=== PATIENT | female | born 1960 | race Caucasian/White ===

== ENCOUNTER 2019-11-10 09:35 | Outpatient (CLI) | payer OTHER, SELFPAY ==
--- NOTE | ~2019-11-10 | XR_ITS ---
EXAMINATION: XR abdomen obstructive series EXAM DATE: 11/10/2019 09:54 INDICATION: Right mid abdominal pain, symptoms for 3 weeks. TECHNIQUE: Frontal upright projection of the upper abdomen, frontal projection of the lower abdomen f or interpretation. There is no prior study for comparison. FINDINGS: There is expected amount of colonic stool and gas. No small bowel dilation, nonobstructiv e bowel gas pattern. There are no suspicious calcifications identified. There is no organomegaly suspected. Advanced left L4-5 facet arthropathy. There is no free intraperitoneal air. The lung b ases are clear. IMPRESSION: Unremarkable abdomen x-ray exam. Reviewed, dictated and finalized at location B.
== END 2019-11-10 09:36 | disposition home or self-care (01) ==
PROVIDERS: PCP Family Medicine; Visit Provider Physician Assistant
DX: R10.9 Unspecified abdominal pain (principal)
CPT/HCPCS: 74019

== ENCOUNTER 2019-11-15 10:42 | Outpatient (CLI) | payer OTHER, SELFPAY ==
--- NOTE | ~2019-11-15 | CT_ITS ---
EXAMINATION: CT abdomen pelvis w con EXAM DATE: 11/15/2019 11:27 INDICATION: Acute abdominal pain. TECHNIQUE: Spiral CT of the abdomen and pelvis was performed following intravenous injection of 100 m L Omnipaque 350. Axial, coronal and sagittal images were reviewed. The dose-length product (DLP) fo r this examination was 1046.58 mGy-cm. The exposure was tailored according to patient size (auto mA exposure control), and iterative reconstruction (ASIR) was used as additional dose reduction techniqu e. There is no prior study for comparison. FINDINGS: There is a lipoma within the lumen of the hepatic flexure of the colon measuring about 3 x 5 cm, probably a lead point causing colonic intussusception. No pneumatosis or perforation. Only mild colonic wall edema at this location. There are some small colonic lymph nodes which are probably bijal ctive. There is moderate to severe sigmoid, moderate descending colonic diverticulosis. The liver, spleen, adrenal glands and pancreas are unremarkable. There are gallstones within an othe rwise unremarkable gallbladder. No evidence of obstructive biliary disease. Portal and splenic vein s are patent. Kidneys enhance symmetrically. There is no hydronephrosis. The uterus is anteverted and morphologically normal. The bladder is unremarkable. There is no retroperitoneal or pelvic ly mphadenopathy. Small umbilical fat-containing hernia. The appendix is normal. There is small sliding gastroesophageal hiatal hernia. No free intraperito ranulfo gas. The heart is normal in size. There are no pericardial or pleural effusions. The lung ba ses are unremarkable. There are no osteoblastic or osteolytic lesions identified. IMPRESSION: 1. Ascending/transverse colonic intussusception with large intraluminal lipoma as likely lead point. 2. Colonic diverticulosis. 3. Cholelithiasis. Reviewed, dictated and finalized at location B.
[2019-11-15 11:19] LABS: Estimated Glomerular Filt Rate > 60
== END 2019-11-15 10:43 | disposition home or self-care (01) ==
PROVIDERS: PCP Family Medicine; Visit Provider Physician Assistant
DX: K57.30 Diverticulosis of large intestine without perforation or abscess without bleeding (principal); K80.20 Calculus of gallbladder without cholecystitis without obstruction; K56.1 Intussusception
CPT/HCPCS: 36415; 74177; Q9967

== ENCOUNTER 2019-11-15 16:56 | Inpatient (IN) | payer OTHER, SELFPAY ==
--- NOTE | ~2019-11-15 | XR_ITS ---
EXAMINATION: XR chest 1V portable INDICATION: Pacemaker insertion TECHNIQUE: Portable AP chest at 1510 hours COMPARISON: None available FINDINGS: A dual-lead pacemaker of the left chest wall ends with its leads in expected positions. The re is no pleural effusion or pneumothorax. The lungs are free of acute opacities. The cardiomediastin al silhouette is normal. IMPRESSION: 1. Dual lead pacemaker of the left chest wall, no pneumothorax. Reviewed, dictated and finalized at location A.
--- NOTE | ~2019-11-15 | XR_ITS ---
EXAMINATION: XR chest 2V 11/17/2019 11:32 INDICATION: Post pacemaker placement PROCEDURE: 2 view chest COMPARISON: 11/16/2019 FINDINGS: The lungs are clear. The cardiomediastinal silhouette is within normal limits. There are no pleural effusions. There is no pneumothorax suspected. Pacemaker leads are in expected position. IMPRESSION: 1: NO ACUTE CARDIOPULMONARY DISEASE. Reviewed, dictated and finalized at location A.
[2019-11-15 17:30] VITALS: BP 142/83; PULSE 65; RESP 18; TEMP 37.2; O2SAT 100
[2019-11-15 17:34] LABS: Basophils Absolute Auto 0.1 K/mm3 (0.0-0.1); Basophils Percent Auto 0.5 % (0.2-1.2); Eosinophils Absolute Auto 0.2 K/mm3 (0-0.3); Eosinophils Percent Auto 1.9 % (0-4.4); Hematocrit 39.1 % (37.0-47.0); Hemoglobin 13.1 g/dL (12.0-15.0); Immature Granulocyte Absolute 0.06 K/mm3 (0.00-0.031); Immature Granulocyte Percent A 0.5 % (0-0.5); Lymphocytes Absolute Auto 3.21 K/mm3 (0.9-3.2); Lymphocytes Percent Auto 29.4 % (18.3-44.2); Mean Corpuscular HGB Conc 33.5 g/dl (32-36); Mean Corpuscular Hemoglobin 30.5 pg (26-34); Mean Corpuscular Volume 91.1 fl (80-100); Mean Platelet Volume 10.5 fl (7.4-10.4); Monocytes Absolute Auto 0.8 K/mm3 (0.1-0.6); Monocytes Percent Auto 7.1 % (2.6-8.5); Neutrophils Absolute Auto 6.6 K/mm3 (1.3-6.7); Neutrophils Percent Auto 60.6 % (45.5-73.1); Platelet Count Result 287 k/mm3 (150-375); Red Blood Count 4.29 M/mm3 (4.2-5.4); Red Cell Distribution Width 12.8 % (11.5-14.5); White Blood Count 10.9 K/mm3 (4.5-10.0)
[2019-11-15 17:44] LABS: Add Urine Microscopic? NO; Appearance Urine Clear (Clear); Bilirubin Urine Negative (Negative); Blood Urine Negative (Negative); Color Urine Yellow (Yellow); Glucose Urine UA Negative (Negative); Ketones Urine Negative (Negative); Leukocyte Esterase Ur Negative LEU/UL (Negative); Nitrate Urine Negative (Negative); Protein Urine Negative (Negative); Urobilinogen Urine Negative mg/dL (<2.0)
[2019-11-15 17:46] LABS: Alanine Aminotransferase 18 U/L (4-35); Albumin Level 4.3 g/dL (3.5-5.1); Alkaline Phosphatase 81 U/L (38-126); Aspartate Amino Transferase 22 U/L (14-36); Bilirubin,Total 0.6 mg/dL (0.2-1.3); Blood Urea Nitrogen 17 mg/dL (7-17); Calcium 9.3 mg/dL (8.4-10.2); Carbon Dioxide 30 mmol/L (22-30); Chloride 103 mmol/L (98-107); Estimated CRCL calculation 73 ml/min; Estimated Glomerular Filt Rate > 60; Glucose 95 mg/dL (65-105); Lipase 48 U/L (23-300); Potassium 4.4 mmol/L (3.4-5.0); Sodium 138 mmol/L (137-145)
[2019-11-15 17:52] LABS: Specific Grav Ur > 1.060 (1.001-1.035)
[2019-11-15 18:34] LABS: Lactic Acid Reflex 0.7 mmol/L (0.7-2.1)
--- NOTE | 2019-11-15 19:14 | ED.ABDPAIN ---
HPI - Abdominal Pain General Chief Complaint: Abdominal Pain Stated Complaint: ABD Pain Time Seen by Provider: 11/15/19 19:06 History of Present Illness HPI narrative: Patient presents with her daughter for known intussusception. She saw her primary care physician today for intermittent right-sided abdominal pain. The CAT scan showed intussusception with a lipoma as the leading agent. She was sent to the ER to have this evaluated and taken care of. She is previously had a tubal ligation. Her CAT scan also showed gallstones, and she asked if she could have her gallbladder out while she is getting the intussusception fixed. She last ate at 1 PM. She works in an assisted living facility, and understands the medical methods. She does not have any nausea or vomiting. She has not been sick in the last couple weeks with cough cold fever chills or sweats. She does not smoke, she occasionally has a glass of wine, does not do drugs. She is allergic to trazodone. MD elicited complaint: abdominal pain Pertinent past history: other (Tubal ligation) Onset (ago): day(s) Pain Consistency: intermittent Location: R flank Severity: severe Exacerbating factors: nothing Relieving factors: nothing Related Data Home Medications Medication Instructions Recorded Confirmed alprazolam 0.5 mg tablet 0.5 mg PO TID PRN 10/13/19 amlodipine 5 mg tablet 5 mg PO DAILY 10/13/19 atorvastatin 40 mg tablet 40 mg PO DAILY 10/13/19 bupropion HCl 150 mg tablet,12 hr 150 mg PO DAILY 10/13/19 sustained-release meloxicam 15 mg tablet 15 mg PO DAILY 10/13/19 metoprolol succinate 25 mg 25 mg PO BID 10/13/19 tablet,extended release 24 hr Allergies Allergy/AdvReac Type Severity Reaction Status Date / Time trazodone AdvReac Severe psychosis Verified 11/15/19 19:20 cold medications AdvReac Severe tachycardia Uncoded 11/15/19 19:20 Review of Systems Review of Systems: Narrative: CONSTITUTIONAL: Denies fever, chills, or sweats. EYES: Denies visual changes, redness, or discharge. ENT: Denies rhinorrhea, congestion, sore throat, or otalgia. CARDIOVASCULAR: Denies chest pain, palpitations, or edema. RESPIRATORY: Denies cough or dyspnea. GASTROINTESTINAL: She has abdominal pain, but not nausea, vomiting, or diarrhea. GENITOURINARY: Denies dysuria or hematuria. SKIN: Denies rash or itching. MUSCULOSKELETAL: Denies back pain, joint pain, or myalgia. NEUROLOGIC: Denies headache, numbness, or weakness. PSYCHIATRIC: Denies anxiety or depression. [facility] Past Medical History Medical History Anxiety Chronic knee pain Depression HLD (hyperlipidemia) Hypertension Surgical History Surgical History History of tubal ligation 1993 Social History Social History Smoking status: Never smoker Alcohol intake: current Substance use: never Substance use type: does not use Exam Narrative: Exam Narrative: GENERAL: Well-appearing, well-nourished, and in no acute distress. Very charming yu lady. HEAD: Normocephalic, atraumatic. EYES: PERRLA and EOMI. ENT: Nares clear, no rhinorrhea or epistaxis. Mucous membranes moist. NECK: Supple. CHEST: Clear to auscultation. No respiratory distress. HEART: Regular rate and rhythm. No murmur heard. Normal peripheral pulses. ABDOMEN: Soft, nontender, nondistended, normal active bowel sounds. EXTREMITIES: Normal range of motion. No edema. SKIN: Warm, dry, no rash. NEURO: No focal deficits. Alert and oriented x3. PSYCH: Normal mood and affect. Course Consultations Consultation #1: Call Dr. Philip care the general surgeon on-call. He accepts the admission, and requests IV fluids, and clear liquid diet. Date: 11/15/19 Time: 19:18 Vital Signs Vital signs: Vital Signs Temperature 98.9 F 11/15/19 17:30 Pulse Rate 65 11/15/19 17:30 Respiratory Rate 1
[2019-11-15 19:19] VITALS: BP 149/109; PULSE 59; RESP 20; O2SAT 100
[2019-11-15 19:51] VITALS: BP 151/85; PULSE 57; RESP 20; O2SAT 100
[2019-11-15] MEDS: SODIUM CHLORIDE 0.9% IV 1,000 ML 999 ML IV CONT (19:52)
[2019-11-15] MEDS: MORPHINE SULFATE 4 MG/ML INJ IV PUSH ×2 (19:53→21:58)
[2019-11-15 20:58] VITALS: BP 168/91; PULSE 74; RESP 18; TEMP 36.3; O2SAT 100
[2019-11-15 21:01] VITALS: BMI 34.7
[2019-11-15] MEDS: DEXTROSE 5%/0.9% SOD CHL 1,000 ML 100 ML IV CONT (21:02)
--- NOTE | 2019-11-15 21:06 | ADMGEN ---
This patient, Rosa Anderson, was admitted to Medical Room 346-01. Patient/family oriented to hospital policies and general routines including ID bracelet, bed and alarms, visiting hours, pain management, procedures, bathroom and other care routines, personal items, smoking policy, room service/diet, and visiting hours. Valuables list has been completed. Information on how to activate the Rapid Response Team has been discussed. Patient/Family are encouraged to report perceived risks to care and to ask questions if they do not understand what they are told or what they should do.
[2019-11-15] MEDS: ALPRAZolam 0.5 MG TABLET PO (23:38)
[2019-11-15] MEDS: MELATONIN 5 MG TABLET 10 MG PO (23:39)
[2019-11-16] VITALS (19 sets, daily range): BP systolic 110–146; BP diastolic 70–93; PULSE 60–133; RESP 13–20; TEMP 35.9–36.8; O2SAT 92–100
[2019-11-16] MEDS: MORPHINE SULFATE 4 MG/ML INJ IV PUSH ×3 (04:44→23:23)
[2019-11-16] MEDS: DEXTROSE 5%/0.9% SOD CHL 1,000 ML 100 ML IV CONT (05:58)
--- NOTE | 2019-11-16 08:42 | PC.NURSE ---
Patient leaning over trashcan and vomiting. States she became nauseated. Called Dr. Gardner's office and left message with office staff requesting medication for nausea. Awaiting call back. Informed patient. She states she continues to feel slightly nauseated and rates abdominal pain 3/10 but will wait for Morphine until anti-nausea medication can be obtained.
[2019-11-16] MEDS: ONDANSETRON INJ 4 MG/2 ML VIAL IV PUSH ×2 (08:50→17:02)
[2019-11-16] MEDS: AMLODIPINE BESYLATE 5 MG TABLET PO (08:56)
[2019-11-16] MEDS: METOPROLOL SUCCINATE EXT REL 25 MG TABCR PO ×2 (08:56→17:47)
--- NOTE | 2019-11-16 09:05 | PC.NURSE ---
Patient's heartrate noted to be in the 20s on her security monitor with several long pauses noted and extra P waves. Patient awake and alert but feels like she is going to pass out . After just a few seconds, HR increased to the 110s-120s. Patient nauseated and vomiting in trashcan at intervals. STAT EKG ordered.
--- NOTE | 2019-11-16 09:06 | PC.NURSE ---
Patient c/o feeling like her heart was racing . Checked pulse and noted HR of 130 and irregular. Placed patient on telemetry. Noted normal rate and rhythm and HR in the 70s. B/P also remains stable. 125/74. Returned to room and patient states she is not longer having the feeling of her heart racing. Patient resting comfortably in bed. Call out to Dr. Gardner to inform him of incident. Offered patient a Xanax but patient declined.
--- NOTE | 2019-11-16 09:12 | ECG_ITS ---
Measurements Intervals [place] Rate: 74 P: 43 TN: 211 QRS: 2 QRSD: 81 T: 27 QT: 426 QTc: 475 Interpretive Statements SINUS RHYTHM WITH FIRST DEGREE AV BLOCK NONSPECIFIC T-WAVE ABNORMALITY- ANT/INF LEADS BASELINE ARTIFACT- V2-V6 ABNORMAL ECG Electronically Signed On 11-16-2019 9:25:57 CDT by Rico Diaz D.O.
--- NOTE | 2019-11-16 09:17 | PM.IMHP ---
H&P: HPI History of Present Illness Chief complaint: Intussucepton Narrative: Rosa Anderson is a 58 year old female who presented to the ED with abdominal pain for the past 3 weeks. She has been having intermittent pain that has gradually worsened. She saw her PCP for the pain and was worked up as an outpatient. She denied any nausea or vomiting, change in bowels, or blood in stool. Her pain is located in the right mid abdomen and is somewhat colicky. She denies fevers. Eating makes the pain worse but no particular foods cause this. She still has pain when she is not eating. She did have a Cologuard test in the past but has never had a colonoscopy. Review of Systems Review of Systems: All systems reviewed & are unremarkable except as noted in HPI and below Eyes: Eyes: Denies change in vision ENT: Denies hearing loss, Denies neck pain and Denies sore throat Cardiovascular: Cardiovascular: Denies chest pain and Denies dyspnea Respiratory: Respiratory: Denies cough, Denies dyspnea and Denies wheezing Gastrointestinal: Gastrointestinal: Reports as per HPI Genitourinary: Genitourinary: Denies hematuria and Denies dysuria Musculoskeletal: Musculoskeletal: Denies arthralgias, Denies joint swelling and Denies neck pain Allergic/Immunologic: Allergic/Immunologic: Denies wheezing [facility] Past Medical History Medical History Anxiety Chronic knee pain Depression HLD (hyperlipidemia) Hypertension Surgical History Surgical History History of tubal ligation 1993 Family History Family History Mother Sudden cardiac , Onset Age: 49 Father Lung cancer Acute myocardial infarction Social History Social History Smoking status: Never smoker Second hand tobacco smoke exposure: No Alcohol intake: current Drinks per week: 1 Substance use: never Substance use type: does not use Gender identity (if verbalized by the patient): Female Spiritual care concerns: No Meds Home Medications and Allergies Home Medications Medication Instructions Recorded Confirmed Type alprazolam 0.5 mg tablet 0.5 mg PO TID PRN 10/13/19 11/15/19 History amlodipine 5 mg tablet 5 mg PO DAILY 10/13/19 11/15/19 History atorvastatin 40 mg tablet 40 mg PO DAILY 10/13/19 11/15/19 History bupropion HCl 150 mg tablet,12 hr 150 mg PO DAILY 10/13/19 11/15/19 History sustained-release meloxicam 15 mg tablet 15 mg PO DAILY 10/13/19 11/15/19 History metoprolol succinate 25 mg 25 mg PO BID 10/13/19 11/15/19 History tablet,extended release 24 hr dicyclomine 20 mg tablet 20 mg PO TID #90 tablet 11/14/19 11/15/19 Rx melatonin 10 mg PO HS PRN 11/15/19 11/15/19 History tramadol 50 mg tablet 50 mg PO Q6H PRN #20 tablet 11/15/19 11/15/19 Rx Allergies Allergy/AdvReac Type Severity Reaction Status Date / Time trazodone AdvReac Severe psychosis Verified 11/15/19 19:20 cold medications AdvReac Severe tachycardia Uncoded 11/15/19 19:20 Vital Signs Vital Signs - 24 hr 11/15/19 17:30 11/15/19 19:19 11/15/19 19:51 Temperature 37.2 C Pulse Rate 65 59 L 57 L Respiratory Rate 18 20 20 Blood Pressure 142/83 H 149/109 H 151/85 H Pulse Oximetry 100 100 100 11/15/19 20:58 11/16/19 06:23 11/16/19 08:56 Temperature 36.3 C L 36.4 C L Pulse Rate 74 60 130 H Respiratory Rate 18 15 Blood Pressure 168/91 H 118/70 Pulse Oximetry 100 99 11/16/19 09:02 Temperature 36.6 C Pulse Rate 67 Respiratory Rate 14 Blood Pressure 125/74 Pulse Oximetry 98 Exam Const: General: alert; No acute distress Orientation/consciousness: patient oriented x3 Limitations: no limitations HENMT: Head: normocephalic and atraumatic Ears: hearing grossly normal bilaterally General nose exam: Normal external nose prese
--- NOTE | 2019-11-16 09:30 | PC.NURSE ---
STAT EKG reveals NSR with 1st degree heart block and rate in the 70s. Patient resting comfortably and c/o feeling tired . Zainab PEDRAZA from surgery on floor - telemetry strips discussed with her and notified her of episode of bradycardia and abnormalities on the radiation monitor. Also showed her the EKG. Zainab spoke with patient. 0930 - As we were talking about the patient's monitor at the nurses station, patient's HR again dipped into the 20s and then briefly down to O and back up to the 60s-70s. Staff to room and patient sitting on side of bed vomiting in trashcan. Patient again states she feels very tired. Rapid response was called and patient was assessed by rapid response team. Zainab PEDRAZA speaking with Leta Link [employer] DES[employer] from cardiology as well as the hospitalist José Miguel SANTOYO.
[2019-11-16 09:43] LABS: Glucose Point of Care 137 (65-105)
--- NOTE | 2019-11-16 10:00 | PC.NURSE ---
Patient to transfer to IMU per cardiology - for further care. HR continues to fluctuate from the 20s all the way to the 120s at times. Patient's other VS remain stable but patient c/o feeling very tired and like she is going to pass out at times. 1015 - Patient transferred to IMU to bed 207. Report given to Doris RETANA. Patient's daughter Agatha is here and has been updated as well.
--- NOTE | 2019-11-16 11:43 | PC.NURSE ---
Patient arrived to IMU bed 207 at 10:41. patient Heart rate paused at 10:57. I was at bedside, patient became nauseated and tired. never lost consciousness. Dr. Ceballos saw patient at bedside and determined patient needs a permanent pacemaker. Pacemaker will be placed today.
--- NOTE | 2019-11-16 11:51 | PM.CNCAR ---
Assessment and Plan Additional Plan 58-year-old woman with longstanding hypertension presents with abdominal pain and evidence of asymptomatic into susceptible. Very strange that she now has the onset of symptomatic bradyarrhythmia she obviously has paroxysmal atrial flutter as well as AV node dysfunction with significant asystolic pauses as long as 12 seconds. This type of bradyarrhythmia is not likely to be caused by the modest dose of metoprolol that she is taking and I believe permanent pacemaker implantation is appropriate and should be recommended. I did speak with the surgeon involved and he believes that surgery for her into septic can wait a couple of days while we perform a pacemaker implant. Jhon Ceballos MD [facility] History of Present Illness History of Present Illness Consult date/time: Date of service: 11/16/19 11:51 Reason For Visit: Intussucepton Narrative: This is a 58-year-old woman him seeing at the request of the hospitalist and surgical service today because of symptomatic Albert arrhythmias. The patient has no prior history of significant cardiac disease she does state she has been evaluated noninvasively a couple of times because of symptoms of palpitations having had a echocardiogram and a stress test with favorable results. She does not have any previous history of terry syncope. She apparently was admitted to the hospital earlier today to the surgical service because she was told by her PCP to come to the emergency room as she was found to have intususseption . She apparently has been having some right-sided abdominal pain for several weeks and underwent an evaluation including a CT scan with these findings. She denies any previous knowledge of specific cardiac problems she is chronically hypertensive. He had 2 episodes of palpitations resulting in syncope on the floor earlier. She was placed on a quality assurance monitor body. An ECG was done which demonstrated normal sinus rhythm. On telemetry however she has examples of both significant AV node dysfunction as well as paroxysmal atrial flutter with long asystolic pauses of up to 12 seconds. Some of the asystolic pauses also are when she is in sinus rhythm with a series of nonconducted P waves. For this reason I have been consulted to see her is she is in IMU after this arrhythmias were identified she is very weak appearing and does not report any other symptomatology she specifically denies any chest pain pressure or heaviness she denies any orthopnea PND or local extremity edema. Discussed the concept of cardiac pacing with the patient in detail including the risks of infection hemorrhage pneumothorax hemothorax pericardial effusion and . Patient understands all these proceed all of these complications and risks and wishes to proceed with pacemaker implantation Review of Systems Constitutional: Constitutional: Reports fatigue Eyes: Eyes: Reports no additional eye complaints ENT: Reports system reviewed and no additional complaints, except as documented Cardiovascular: Cardiovascular: Reports palpitations Respiratory: Respiratory: Reports no additional respiratory complaints Gastrointestinal: Gastrointestinal: Reports as per HPI and Reports abdominal pain Musculoskeletal: Musculoskeletal: Reports no additional musculoskeletal complaints Integumentary/Breasts: Skin/Breast: Reports system reviewed and no additional complaints, except as docu Neurologic: Reports system reviewed and no additional complaints, except as documented Psychiatric: Psychiatric: Reports no additional psychiatric complaints Endocrine: Endocrine: Reports no additional endocrine complaints Hematologic/Lymphatic: Hematologic/Lymphatic: Reports no additional hematologic/lymphatic complaints Allergic/Immunologic: Allergic/Immunologic: Reports no additional allergic/immunologic complaints [facility] Past Medical History Medical History Anxiet
[2019-11-16 12:05] LABS: INR 1.1; Partial Thromboplastin Time 28.6 SECONDS (22.3-36.8); Prothrombin Time 13.4 Seconds (11.1-14.7)
--- NOTE | 2019-11-16 14:32 | WPDMODSED ---
Moderate Sedation Note-Pt Data Patient Data Diagnosis: 58-year-old patient with abdominal pain presenting for evaluation found to have into susceptible. During hospitalization she was having symptoms of palpitations and syncope and was found to paroxysmal atrial flutter as well as AV node dysfunction with pauses as long as 12 seconds. No previous cardiac history. In this situation implantation of a dual-chamber pacemaker was recommended. Present Complaint: Palpitations syncope and abdominal pain Procedure to be performed/Plan: dual-chamber pacemaker implantation Allergies Allergy/AdvReac Type Severity Reaction Status Date / Time trazodone AdvReac Severe psychosis Verified 11/15/19 19:20 cold medications AdvReac Severe tachycardia Uncoded 11/15/19 19:20 Home Medications Medication Instructions Recorded Confirmed Type alprazolam 0.5 mg tablet 0.5 mg PO TID PRN 10/13/19 11/15/19 History amlodipine 5 mg tablet 5 mg PO DAILY 10/13/19 11/15/19 History atorvastatin 40 mg tablet 40 mg PO DAILY 10/13/19 11/15/19 History bupropion HCl 150 mg tablet,12 hr 150 mg PO DAILY 10/13/19 11/15/19 History sustained-release meloxicam 15 mg tablet 15 mg PO DAILY 10/13/19 11/15/19 History metoprolol succinate 25 mg 25 mg PO BID 10/13/19 11/15/19 History tablet,extended release 24 hr dicyclomine 20 mg tablet 20 mg PO TID #90 tablet 11/14/19 11/15/19 Rx melatonin 10 mg PO HS PRN 11/15/19 11/15/19 History tramadol 50 mg tablet 50 mg PO Q6H PRN #20 tablet 11/15/19 11/15/19 Rx Current Medications: Active Medications Alprazolam (Xanax) 0.5 mg PO TID PRN PRN Reason: Anxiety Last Admin: 11/15/19 23:38 Dose: 0.5 mg Documented by: Amlodipine Besylate (Norvasc) 5 mg PO QAM [facility] Last Admin: 11/16/19 08:56 Dose: 5 mg Documented by: Atorvastatin Calcium (Lipitor) 40 mg PO DAILY [facility] Last Admin: 11/16/19 12:45 Dose: Not Given Documented by: Bupropion HCl (Wellbutrin-Sr (12 Hr)) 150 mg PO DAILY [facility] Last Admin: 11/16/19 08:55 Dose: 150 mg Documented by: Dextrose/Sodium Chloride (Dextrose 5% Sodium Chloride 0.9%) 1,000 mls @ 100 mls/hr IV CONT .Q10H [facility] Last Admin: 11/16/19 05:58 Dose: 100 mls/hr Documented by: Lactated Ringer's (Lr - Lactated Ringers Iv) 1,000 mls @ 30 mls/hr IV CONT .Q24H [facility] Melatonin (Melatonin) 10 mg PO HS [facility] Metoprolol Succinate (Toprol Xl) 25 mg PO BID [facility] Last Admin: 11/16/19 08:56 Dose: 25 mg Documented by: Morphine Sulfate (Morphine Sulfate Inj) 4 mg IV PUSH Q2HR PRN PRN Reason: Pain Last Admin: 11/16/19 08:50 Dose: 4 mg Documented by: Ondansetron HCl (Zofran Inj) 4 mg IV PUSH Q4H PRN PRN Reason: Nausea And Vomiting Last Admin: 11/16/19 08:50 Dose: 4 mg Documented by: Sedation/Anesthesia: No previous sedation/anesthesia problems (including family history). [facility] Past Medical History Medical History Anxiety Chronic knee pain Depression HLD (hyperlipidemia) Hypertension Surgical History Surgical History History of tubal ligation 1993 Family History Family History Mother Sudden cardiac , Onset Age: 49 Father Lung cancer Acute myocardial infarction Social History Social History Smoking status: Never smoker Second hand tobacco smoke exposure: No Alcohol intake: current Drinks per week: 1 Substance use: never Substance use type: does not use Gender identity (if verbalized by the patient): Female Spiritual care concerns: No Mod Sed Physical Exam Physical Exam Pre Procedural Exam: Normal: Neck, Throat, Airway, Lungs, Heart Size, Heart Rate, Heart Rhythm, Neuro Exam and Extremities and Variation: Appearance ( obese female in no distress) Hours since solid foods: 12 Hours since liquid intake: 12 Internal Medicine - PN
--- NOTE | 2019-11-16 14:35 | WPDCARDPROC ---
Cardiac Cath Procedure Note Date of procedure:: 11/16/19 Performing physician:: Jhon Ceballos MD Indication:: paroxysmal atrial flutter and complete heart block Brief clinical history:: 58-year-old patient with no previous known cardiac history admitted with abdominal pain. She has been found to have an intususseption. She also has been found to have evidence of AV node dysfunction she is telemetry and has evidence of intermittent atrial flutter as well as AV node dysfunction with long asystolic pauses both when in sinus rhythm and atrial flutter. This setting pacemaker implant has been recommended. Procedure Procedure performed:: Implantation of permanent dual chamber pacemaker Sedation/Medication given:: fentanyl 50 mg Versed 2 mg case start time 1:26 p.m. case end time 2:20 p.m. a sedation provided by Gunjan Jackman RN trained observer Access site:: left subclavian vein Estimated blood loss:: 15-20 cc Procedure note:: patient was brought to cardiac catheterization lab in postabsorptive state the left anterior chest wall was prepped draped fashion. Anesthesia was provided with 1% lidocaine injected inferior to the clavicle. The incision was then made from the midclavicular line to the deltopectoral groove. Sharp and blunt dissection was then used to separate the subcutaneous tissue down to the level the prepectoral fashion. Electrocautery was used to provide cutaneous hemostasis. Patient is obese and the pocket was relatively deep. Following this the pocket was packed with antibiotic soaked 4 x 4. The attention was then turned venous access. Using the supplied pacemaker introducer kit since the safe sheaths 2 punctures were made of the left subclavian vein guidewires were advanced to the level of the right atrium under fluoroscopic guidance. Using the 2 pacemaker safe sheaths provided pacemaker leads detailed below replaced into the venous circulation to the level of the right atrium. Attention was then turned to the Ventricular lead. A stylette was removed and a 3 cc syringe was used to form adjacent tipped stylet which was placed into the lead and this was used to maneuver the lead through the right ventricle out to the pulmonary artery position. The straight stylet was placed back into the lead after it was withdrawn and placed into the right ventricular apical position. The she was tested using the analyzer with good pacing and sensing performance and a 10 volt stimulation showed no sign extracardiac stimulation. Following this attention was turned to the atrial lead. A straight stylet was removed and placed with a preformed J stylet placed into the right atrial appendage position. the lead was tested using the analyzer again with good pacing and sensing performance and a 10 volt stimulation showed no evidence of extracardiac stimulation. The retained sponge was withdrawn from the pocket. The pacemaker generator was connected to the leads. Upon preparing to suture the pocket I was informed by the pacemaker rep that the atrial lead had become dislodged. The patient was placed back into the fluoroscope and clearly the atrial lead had fallen into the right ventricle. The retention screw was then retracted again. I used a longer J-tip stylet to to place the lead back into the right atrial appendage and the fixation screw was again deployed. Upon withdrawal of the stylet the lead was again fixed into position. Appropriate sensing and current of injury were found. The this pacing threshold was is bit higher with this lead position but was declining during the case and felt to be in good position. Once again attempt to stimulate showed no evidence of extracardiac stimulation. The leads were then reconnected to the pacemaker generator which was placed into the pocket along with the leads. The pocket was then closed in layers using 3 0 Vicryl in an interrupted fashion for the subcutaneous tissue 4 0 Vicryl running subcuticula
--- NOTE | 2019-11-16 14:55 | ECG_ITS ---
Measurements Intervals [place] Rate: 70 P: 51 NE: 195 QRS: 15 QRSD: 82 T: 32 QT: 409 QTc: 443 Interpretive Statements SINUS RHYTHM NONSPECIFIC T-WAVE ABNORMALITY- HIGH LATERAL LEADS BASELINE ARTIFACT- I, II, AVR BORDERLINE ECG Electronically Signed On 11-16-2019 15:46:04 CDT by Rico Diaz D.O.
[2019-11-17] VITALS (25 sets, daily range): BP systolic 102–151; BP diastolic 62–78; PULSE 59–78; RESP 12–24; TEMP 36.2–36.7; O2SAT 88–100
[2019-11-17 07:45] LABS: Hematocrit 37.9 % (37.0-47.0); Hemoglobin 12.9 g/dL (12.0-15.0); Mean Corpuscular Hemoglobin 30.6 pg (26-34); Mean Corpuscular Volume 89.8 fl (80-100); Mean Platelet Volume 10.2 fl (7.4-10.4); Platelet Count Result 273 k/mm3 (150-375); Red Blood Count 4.22 M/mm3 (4.2-5.4); Red Cell Distribution Width 12.9 % (11.5-14.5); White Blood Count 11.5 K/mm3 (4.5-10.0)
[2019-11-17 07:57] LABS: Blood Urea Nitrogen 12 mg/dL (7-17); Carbon Dioxide 30 mmol/L (22-30); Chloride 101 mmol/L (98-107); Estimated CRCL calculation 83 ml/min; Estimated Glomerular Filt Rate > 60; Glucose 121 mg/dL (65-105); Potassium 4.1 mmol/L (3.4-5.0); Sodium 137 mmol/L (137-145)
[2019-11-17] MEDS: MORPHINE SULFATE 4 MG/ML INJ IV PUSH (09:01)
[2019-11-17] MEDS: POTASSIUM CHLORIDE INJ 10 MEQ in DEXTROSE 5%/0.45% SOD CHL 1,000 ML 100 MEQ IV CONT (09:02)
[2019-11-17] MEDS: ATORVASTATIN 40 MG TABLET PO (09:11)
[2019-11-17] MEDS: AMLODIPINE BESYLATE 5 MG TABLET PO (09:46)
[2019-11-17] MEDS: METOPROLOL SUCCINATE EXT REL 25 MG TABCR PO (09:46)
[2019-11-17] MEDS: ONDANSETRON INJ 4 MG/2 ML VIAL IV PUSH ×2 (11:34→18:44)
--- NOTE | 2019-11-17 11:37 | PC.NURSE ---
Patient transported to [facility] via wheelchair, nausea with emesis noted while standing. Patient returned to room without incident. Dr. Gardner at bedside. Reviewed plan of care for OR procedure on 11/18/19.
--- NOTE | 2019-11-17 12:12 | PM.PNGS ---
Progress Note: A&P Assessment and Plan (1) Abnormal CT of the abdomen: Code(s): R93.5 - Abnormal findings on diagnostic imaging of other abdominal regions, including retroperitoneum Status: Acute Assessment and Plan: Although, there have been a change of events and the patient was taken for a permanent pacemaker yesterday, this does not change that we would still recommend proceeding with a BRIDGER right hemicolectomy, possible laparoscopic cholecystectomy, possible open, by Dr. Gardner for the intussusception as discussed previously. She has been cleared by Cardiology and is stable today. Patient has not had any worsening abdominal symptoms and is still stable from a surgical standpoint. Will allow the patient to have clear liquids today and make NPO after midnight with the plan of proceeding with surgery tomorrow morning. Activity recommendations according to Cardiology. Will transfer out of IMU to a medical/surgical floor. (2) Intussusception: Code(s): K56.1 - Intussusception Status: Acute (3) Status post placement of cardiac pacemaker: Code(s): Z95.0 - Presence of cardiac pacemaker Status: Acute Assessment and Plan: Now s/p placement of a permanent pacemaker on 11/16/19 due to symptomatic bradyarrythmia. Spoke with Cardiology today regarding proceeding with surgery today or tomorrow. They are okay with proceeding with surgery with limitations in movement of her left arm and bedrest x 24 hours. Post-op chest x-ray showed no evidence of a pneumo. Appreciate Cardiology's help. (4) Gallstone: Qualifiers: Biliary obstruction: without biliary obstruction Cholecystitis presence: without cholecystitis Qualified Code(s): K80.20 - Calculus of gallbladder without cholecystitis without obstruction Code(s): K80.20 - Calculus of gallbladder without cholecystitis without obstruction Status: Acute (5) Depression: Qualifiers: Depression Type: major depressive disorder Major depression recurrence: recurrent Active/Remission status: currently active Major depression episode severity: mild Qualified Code(s): F33.0 - Major depressive disorder, recurrent, mild Code(s): F32.9 - Major depressive disorder, single episode, unspecified Status: Acute (6) Hypertension: Qualifiers: Hypertension type: essential hypertension Qualified Code(s): I10 - Essential (primary) hypertension Code(s): I10 - Essential (primary) hypertension Status: Acute Additional Plan Discussed the patient's plan of care with Dr. Gardner today. Subjective Subjective Date/Time Seen: 11/17/19 10:12 Post Op day: 1 (Pacemaker placement) Patient reports: flatus and no bowel movement Interval history: Update: Yesterday, the patient was found to have a symptomatic bardyarrhythmia. Cardiology was consulted and she was found to has paroxysmal atrial flutter as well as AV node dysfunction with significant asystolic pauses. She was taken for placement of a permanent pacemaker yesterday after Cardiology's evaluation. Today, the patient reports having headache this morning. Otherwise, no new complaints. She denies any abdominal pain at this time. Denies any nausea, vomiting, or bloating. Reports flatus but no BM. Review of Systems Review of Systems: All systems reviewed & are unremarkable except as noted in HPI and below Cardiovascular: Cardiovascular: Denies chest pain Respiratory: Respiratory: Denies cough, Denies dyspnea and Denies wheezing Gastrointestinal: Gastrointestinal: Reports as per HPI Musculoskeletal: Musculoskeletal: Denies joint swelling Exam Const: General: comfortable, alert and awake; No acute distress Orientation/consciousness: patient oriented x3 Chest: Other: Left chest dressing clean dry and intact. Currently wearing a left arm sling. Resp: Effort & Inspection: normal respiratory effort and able to speak in complete sentences Ausculta
--- NOTE | 2019-11-17 13:12 | PM.PNCARD ---
Progress Note: A&P Assessment and Plan (1) Status post placement of cardiac pacemaker: Code(s): Z95.0 - Presence of cardiac pacemaker Status: Acute Assessment and Plan: Status post Biotronik dual-chamber pacemaker placement 11/16/[address] Ceballos. Pacemaker is functioning appropriately. Reviewed activity restrictions and follow-up. (2) Atrial flutter with rapid ventricular response: Code(s): I48.92 - Unspecified atrial flutter Status: Acute Assessment and Plan: Continue beta-letty therapy. (3) Complete heart block: Code(s): I44.2 - Atrioventricular block, complete Status: Acute Assessment and Plan: Pacemaker is above Additional Plan OK to discharge from cardiac standpoint. Further telemetry monitoring not needed. See discharge instructions for follow-up. Plan discussed with Dr. Ceballos 1319 11/17/2019 Subjective Date/time seen: 11/17/19 13:12 Interval history: Follow-up for: Symptomatic bradycardia, paroxysmal atrial flutter and AV node dysfunction with significant asystolic pause as long as 12 seconds status post Biotronik dual-chamber pacemaker placement 11/16/2019. Date of service: 11/17/2019 Subjective: Has headache and nausea. Some discomfort at the pacemaker site. No shortness of breath. No lightheadedness. Family at bedside. Review of Systems Constitutional: Constitutional: Reports fatigue Eyes: Eyes: Reports no additional eye complaints ENT: Reports Normal hearing present Cardiovascular: Cardiovascular: Reports pedal edema (Not currently. Has after work and when traveling), Denies palpitations, Denies dyspnea and Denies orthopnea Respiratory: Respiratory: Denies cough and Denies dyspnea Gastrointestinal: Gastrointestinal: Reports abdominal pain and Reports nausea Musculoskeletal: Musculoskeletal: Reports no additional musculoskeletal complaints Integumentary/Breasts: Skin/Breast: Denies erythema, Denies rash and Denies wounds Neurologic: Denies dizziness and Denies syncope Psychiatric: Psychiatric: Denies anxiety and Denies depression Endocrine: Endocrine: Reports fatigue and Denies palpitations Hematologic/Lymphatic: Hematologic/Lymphatic: Denies easy bruising Allergic/Immunologic: Allergic/Immunologic: Reports no additional allergic/immunologic complaints Exam Const: General: cooperative and no acute distress Nutritional Appearance: obese Orientation/consciousness: patient oriented x3 Limitations: no limitations HENMT: Mouth: Yes moist mucous membranes Eyes: Sclera: sclerae normal Pupils: Equal, round and reactive pupils present Neck: Neck: supple Other: Normal carotid upstrokes no bruits are audible Chest: Other: Left subclavian Aquacel dressing intact. Slightly edematous without ecchymoses or bleeding. One pinpoint area of drainage on medial end of dressing. Resp: Effort & Inspection: normal respiratory effort and able to speak in complete sentences Auscultation: clear to auscultation bilaterally Cardio: Rate: regular rate Rhythm: regular rhythm Heart sounds: no murmurs GI: GI Palp: Yes Soft to palpation Other: Mid abdominal tenderness Skin: General skin exam: normal color Lesions: no lesions Rashes: no rashes Neuro: Cranial nerves: Yes Equal, round and reactive pupils present Cognition (Neuro): normal cognition Extrem: General: normal to inspection Psych: Appearance: grossly normal Speech and movement: Normal speech and movement present Affect: normal affect Attitude: cooperative Thought process: Normal thought process present Thought content: Yes Normal thought content present Insight: Good insight present (Psych) Judgement: Good judgement present (Psych) Objective Data Vital Signs Vital Signs: Vital Signs - 24 hr 11/16/19 15:00 11/16/19 15:15 11/16/19 15:30 Temperature 36.7 C Pulse Rate 67 77 65 Respiratory Rate 14 20 14 Blood Pressure 128/79 125/71 121/76 Pulse Oximetry 95
--- NOTE | 2019-11-17 13:37 | WPDANESEPPF ---
Anes - Initial Pre Proc Eval Procedure: Operation Date: 11/17/19 15:00 Proposed Procedures p HAND ASSISTED LAPAROSCOPIC RIGHT HEMICOLECTOMY - Rick Gardner DO s Possible Laparoscopic Cholecystectomy - Rick Gardner DO Date/Time: 11/17/19 13:37 Surgeon: Rick Gardner DO Pre Op Diagnosis: Intucompaucepton Patient Data Age: 58 Gender: F Height: 1.7 m Weight: 100.6 kg Last Vital Signs Temp 36.4 C L 11/17/19 12:36 Pulse 60 11/17/19 12:36 Resp 24 H 11/17/19 12:36 BP 103/66 11/17/19 12:36 Pulse Ox 99 11/17/19 12:36 Allergies Allergy/AdvReac Type Severity Reaction Status Date / Time trazodone AdvReac Severe psychosis Verified 11/15/19 19:20 cold medications AdvReac Severe tachycardia Uncoded 11/15/19 19:20 Home Medications Medication Instructions Recorded Confirmed Type alprazolam 0.5 mg tablet 0.5 mg PO TID PRN 10/13/19 11/15/19 History amlodipine 5 mg tablet 5 mg PO DAILY 10/13/19 11/15/19 History atorvastatin 40 mg tablet 40 mg PO DAILY 10/13/19 11/15/19 History bupropion HCl 150 mg tablet,12 hr 150 mg PO DAILY 10/13/19 11/15/19 History sustained-release meloxicam 15 mg tablet 15 mg PO DAILY 10/13/19 11/15/19 History metoprolol succinate 25 mg 25 mg PO BID 10/13/19 11/15/19 History tablet,extended release 24 hr dicyclomine 20 mg tablet 20 mg PO TID #90 tablet 11/14/19 11/15/19 Rx melatonin 10 mg PO HS PRN 11/15/19 11/15/19 History tramadol 50 mg tablet 50 mg PO Q6H PRN #20 tablet 11/15/19 11/15/19 Rx Laboratory Tests 11/17/19 11/17/19 07:30 07:30 WBC 11.5 K/mm3 H K/mm3 (4.5-10.0) RBC 4.22 M/mm3 M/mm3 (4.2-5.4) Hgb 12.9 g/dL g/dL (12.0-15.0) Hct 37.9 % % (37.0-47.0) MCV 89.8 fl fl (80-100) MCH 30.6 pg pg (26-34) MCHC 34.0 g/dl g/dl (32-36) RDW 12.9 % % (11.5-14.5) Plt Count 273 k/mm3 k/mm3 (150-375) MPV 10.2 fl fl (7.4-10.4) Sodium 137 mmol/L mmol/L (137-145) Potassium 4.1 mmol/L mmol/L (3.4-5.0) Chloride 101 mmol/L mmol/L (98-107) Carbon Dioxide 30 mmol/L mmol/L (22-30) BUN 12 mg/dL D mg/dL (7-17) Creatinine 0.80 mg/dL mg/dL (0.7-1.0) Estim Creat Clear Calc 83 ml/min ml/min Estimated GFR > 60 (59 - ) Glucose 121 mg/dL H mg/dL (65-105) Calcium 9.0 mg/dL mg/dL (8.4-10.2) ECG: Date of Service: 11/16/19 Procedure(s): CA 12 lead EKG Accession Number(s): [id number] cc: ~ Measurements Intervals [place] Rate: 70 P: 51 CO: 195 QRS: 15 QRSD: 82 T: 32 QT: 409 QTc: 443 Interpretive Statements SINUS RHYTHM NONSPECIFIC T-WAVE ABNORMALITY- HIGH LATERAL LEADS BASELINE ARTIFACT- I, II, AVR BORDERLINE ECG Electronically Signed On 11-16-2019 15:46:04 CDT by Rico Diaz D.O. Dictated By: Rico Diaz DO 11/16/19 1452 Patient hx anesthesia problems: none Family hx anesthesia problems: none PMFSH Past Medical History Medical History (Updated 11/17/19 @ 13:38 by Benjamín Gage MD) Anxiety Chronic knee pain Depression Gallstone HLD (hyperlipidemia) Hypertension Intussusception Obesity Surgical History Surgical History (Updated 11/17/19 @ 13:38 by Benjamín Gage MD) History of tubal ligation 1993 Status post placement of cardiac pacemaker Family History Family History Mother Sudden cardiac , Onset Age: 49 Father Lung cancer Acute myocardial infarction Social History Social History Smoking status: Never smoker Second hand tobacco smoke e
[2019-11-17] MEDS: LACTATED RINGERS 1,000 ML 30 ML IV CONT ×2 (14:00→17:08)
[2019-11-17] MEDS: SCOPOLAMINE 1.5 MG PATCH TRANSDERM (14:13)
[2019-11-17] MEDS: MIDAZOLAM HCL 2 MG/2 ML VIAL IV PUSH (14:13)
[2019-11-17] MEDS: ceFAZolin 2 GM/D5W 50 ML 2 GM/50 ML BAG IVPB (14:43)
[2019-11-17] MEDS: metroNIDAZOLE 500 MG/ISO 100ML 500 MG/100 ML BAG 100 MG IVPB (14:55)
[2019-11-17] MEDS: IBUPROFEN IV 800 MG/200 ML 800 MG/200 ML BAG 400 MG IVPB (15:04)
[2019-11-17] MEDS: BUPIVACAINE/EPINEPHRINE 0.5% 30 ML VIAL 40 ML INFILTRATE (15:29)
--- NOTE | 2019-11-17 15:56 | SUR.OPER ---
mistaken entry, ibuprofen 800mg charted as given @ 1504. Actual medication administered was Tylenol 1 gram given @ 1504
--- NOTE | 2019-11-17 16:56 | PM.PROC ---
Procedure Note - Detailed Date of procedure: 11/17/19 Pre-op diagnosis: Intussucepton Symptomatic cholelithiasis Post-op diagnosis: same Procedure performed: 1. Hand assisted laparoscopic right hemicolectomy with ileocolic anastomosis 2. Laparoscopic cholecystectomy Description of procedure: Procedure as well as risks benefits and alternatives were explained to the patient. Written consent was obtained and placed in chart prior to procedure. Patient was brought back to surgical suite. She was placed supine on operating table. Time-out was done to confirm patient procedure. She was then intubated by the anesthesia department. Her abdomen was prepped and draped in sterile fashion using chlorhexidine prep. A 7 centimeter vertical incision was made centered on the umbilicus using a 15 blade scalpel. Electrocautery was used for hemostasis and for dissection down through Sahil's fascia. The linea alba was identified, and incised using electrocautery. Two Jose clamps were used to lift the fascia anteriorly, and the peritoneum was then entered using electrocautery. The abdomen was inspected and no acute abnormalities were noted. The wound protector was placed at this incision, and the GelPort was applied with a 5 millimeter port placed through it. Carbon dioxide insufflation was used to create a pneumoperitoneum. The camera was inserted and the abdominal cavity was inspected. No abnormalities were noted. The patient was placed in Trendelenburg position and rotated slightly to the left. A 5 millimeter incision was made in the lower midline and a 5 millimeter trocar was inserted under direct visualization. Another 5 millimeter incision was made in the left lower quadrant, and a 5 millimeter trocar was inserted under direct visualization. 0.5% bupivacaine with epinephrine was infiltrated locally around each of the incisions. After carefully inspecting the abdominal cavity, I identified the palpable mass within the cecum. I chose to perform a lateral to medial dissection to mobilize the right colon medially. The lateral peritoneal attachments of the ascending colon were then taken down using hook electrocautery. The duodenum was identified and kept in a posterior location. The hepatic flexure was taken down using ligasure bipolar cautery. Once this was completed I gained adequate mobilization of the entire ascending and proximal transverse colon to exteriorize and perform our resection and anastomosis. The patient was flattened out in bed, and the cecum was grasped and delivered through the wound protector. The pneumoperitoneum was released. I carefully delivered the entire ascending and proximal transverse colon out through the hand port incision. The specimen was inspected and appeared to have adequate mobilization to perform our resection. The ascending colon was cleared of the epiploic appendages and omentum and a MARIO 75 millimeter blue load stapler was advanced across the ascending colon at this point and clamped and fired. Hemostasis appeared adequate. A window was then created in the mesentery at the terminal ileum, and a MARIO 75 millimeter blue load stapler was advanced across the terminal ileum at this point and clamped and fired. The mesentery attachments were then taken down using bipolar cautery. This freed up the specimen completely, and it was then removed and sent to the lab for pathology. The 2 ends of the bowel were inspected and appeared healthy and viable. They came together in a [id number] fashion without any tension. Enterotomies were then made at the anti mesenteric border using electrocautery. The MARIO 75 millimeter blue load stapler was then advanced through each enterotomy and the 2 limbs of the bowel were clamped together in a [id number] fashion and then the stapler was fired to create our anastomosis. The stapler was removed and the anastomosis was inspected. It appeared healthy and viable. The enterotomy was then closed using
--- NOTE | 2019-11-17 18:15 | PC.NURSE ---
Report given to LAINEY Stephen [address] [place] [address].
[2019-11-17] MEDS: LACTATED RINGERS 1,000 ML 100 ML IV CONT (18:52)
--- NOTE | 2019-11-17 19:01 | PC.NURSE ---
Patient received from Recovery room. Report received from recovery and IMU nurse which took care of the patient previously.
[2019-11-18] VITALS (14 sets, daily range): BP systolic 113–127; BP diastolic 58–65; PULSE 60–72; RESP 12–22; TEMP 36.8–37.3; O2SAT 94–99
[2019-11-18] MEDS: ACETAMINOPHEN 500 MG TABLET 1000 MG PO ×2 (01:26→08:59)
[2019-11-18 05:44] LABS: Hematocrit 37.5 % (37.0-47.0); Hemoglobin 12.4 g/dL (12.0-15.0); Mean Corpuscular HGB Conc 33.1 g/dl (32-36); Mean Corpuscular Hemoglobin 30.1 pg (26-34); Mean Platelet Volume 10.4 fl (7.4-10.4); Platelet Count Result 264 k/mm3 (150-375); Red Blood Count 4.12 M/mm3 (4.2-5.4); White Blood Count 20.1 K/mm3 (4.5-10.0)
[2019-11-18 05:58] LABS: Blood Urea Nitrogen 15 mg/dL (7-17); Calcium 8.9 mg/dL (8.4-10.2); Carbon Dioxide 28 mmol/L (22-30); Chloride 101 mmol/L (98-107); Estimated CRCL calculation 83 ml/min; Estimated Glomerular Filt Rate > 60; Glucose 124 mg/dL (65-105); Potassium 4.3 mmol/L (3.4-5.0); Sodium 134 mmol/L (137-145)
[2019-11-18] MEDS: LACTATED RINGERS 1,000 ML 100 ML IV CONT (05:58)
[2019-11-18 07:12] LABS: Band Neutrophils Percent 5 % (0-6); Monocytes Percent Manual 2 % (3-9); Neutrophils Absolute Manual 18.49 K/mm3 (1.7-7.2); Neutrophils Percent Manual 87 % (46-73); Total Cells Counted 100
[2019-11-18 07:13] LABS: Platelet Estimate Adequate (Adequate)
[2019-11-18] MEDS: AMLODIPINE BESYLATE 5 MG TABLET PO (08:59)
[2019-11-18] MEDS: METOPROLOL SUCCINATE EXT REL 25 MG TABCR PO ×2 (09:00→16:30)
[2019-11-18] MEDS: ATORVASTATIN 40 MG TABLET PO (09:00)
[2019-11-18] MEDS: ENOXAPARIN 40 MG/0.4 ML SYRINGE SUB-Q (09:00)
--- NOTE | 2019-11-18 11:54 | PM.PNGS ---
Progress Note: A&P Assessment and Plan (1) Intussusception: Code(s): K56.1 - Intussusception Status: Acute Assessment and Plan: Stop IV fluids and advance to full liquids today Increase activity, encourage IS Pathology pending Await return of bowel function (2) Gallstone: Qualifiers: Biliary obstruction: without biliary obstruction Cholecystitis presence: without cholecystitis Qualified Code(s): K80.20 - Calculus of gallbladder without cholecystitis without obstruction Code(s): K80.20 - Calculus of gallbladder without cholecystitis without obstruction Status: Acute (3) Atrial flutter with rapid ventricular response: Code(s): I48.92 - Unspecified atrial flutter Status: Acute (4) Complete heart block: Code(s): I44.2 - Atrioventricular block, complete Status: Acute Subjective Subjective Date/Time Seen: 11/18/19 11:54 Post Op day: 1 Patient reports: tolerating liquids well, no flatus and no bowel movement Interval history: Tolerating clears. No nausea or bloating. Urinating without difficulty. Exam GI: Inspection: non-distended and incision (clean and dry) GI Palp: Yes Tenderness to palpation present (GI) (incisional) Auscultation: Hypoactive bowel sounds present Objective Data Vital Signs Vital Signs: Vital Signs - 24 hr 11/17/19 12:00 11/17/19 12:36 11/17/19 13:55 Temperature 36.4 C L 36.6 C Pulse Rate 60 60 60 Respiratory Rate 24 H 16 Blood Pressure 103/66 119/65 Pulse Oximetry 99 99 97 11/17/19 17:08 11/17/19 17:15 11/17/19 17:30 Temperature 36.4 C L Pulse Rate 60 60 60 Respiratory Rate 15 16 12 Blood Pressure 126/71 130/65 108/71 Pulse Oximetry 100 100 99 11/17/19 17:45 11/17/19 18:00 11/17/19 18:15 Temperature Pulse Rate 60 60 60 Respiratory Rate 14 20 14 Blood Pressure 117/64 119/69 126/73 Pulse Oximetry 98 93 95 11/17/19 18:23 11/17/19 18:38 11/17/19 18:50 Temperature 36.3 C L 36.4 C Pulse Rate 78 65 Respiratory Rate 20 16 Blood Pressure 151/76 H 114/62 Pulse Oximetry 95 88 L 94 11/17/19 19:28 11/17/19 20:00 11/17/19 20:28 Temperature 36.7 C 36.7 C Pulse Rate 59 L 60 62 Respiratory Rate 16 16 Blood Pressure 102/64 115/67 Pulse Oximetry 98 96 11/17/19 22:00 11/18/19 00:59 11/18/19 01:56 Temperature 36.7 C Pulse Rate 65 72 60 Respiratory Rate 16 Blood Pressure 118/68 Pulse Oximetry 97 11/18/19 02:00 11/18/19 04:00 11/18/19 04:40 Temperature 37.0 C 36.8 C Pulse Rate 65 71 60 Respiratory Rate 16 12 Blood Pressure 127/65 119/60 Pulse Oximetry 94 96 11/18/19 05:30 11/18/19 09:00 11/18/19 10:00 Temperature 37.2 C Pulse Rate 72 70 Respiratory Rate 14 Blood Pressure 116/60 Pulse Oximetry 94 99 Intake/Output Intake/Output: Intake & Output 11/15/19 11/16/19 11/17/19 11/18/19 23:59 23:59 23:59 23:59 Intake Total 1000 7437 328 6757 Output Total 1400 1075 600 Balance 1000 300 -525 640 Meds/Results Medications: Active Medications Generic Name Dose Route Start Last Admin Trade Name Freq PRN Reason Stop Dose Admin Alprazolam 0.5 mg 11/15/19 22:40 11/15/19 23:38 Xanax PO 0.5 mg TID PRN Administration Anxiety Amlodipine Besylate 5 mg 11/16/19 09:00 11/18/19 08:59 Norvasc PO 5 mg QAM APOLONIA Administration Atorvastatin Calcium 40 mg 11/16/19 09:00 11/18/19 09:00 Lipitor PO 40 mg DAILY APOLONIA Administration Bupropion HCl 150 mg 11/16/19 09:00 11/18/19 09:00 Wellbutrin-Sr (12 Hr) PO 150 mg DAILY APOLONIA Administration Enoxaparin Sodium 40 mg 11/18/19 09:00 11/18/19 09:00 Lovenox SUB-Q 40 mg DAILY APOLONIA Administration Melatonin 10 mg 11/16/19 21:00 11/18/19 01:00 Melatonin PO Not Given HS APOLONIA Metoprolol Succinate 25 mg 11/16/19 09:00 11/18/19 09:00 Toprol Xl PO 25 mg BID APOLONIA Administration Ondansetron HCl 4 mg 11/16/19 08:43 11/17/19 18:44 Zofran Inj IV
[2019-11-18] MEDS: MELATONIN 5 MG TABLET 10 MG PO (20:57)
[2019-11-19] VITALS (13 sets, daily range): BP systolic 102–124; BP diastolic 57–68; PULSE 59–74; RESP 12–20; TEMP 36.2–37; O2SAT 94–99
[2019-11-19 06:25] LABS: Hematocrit 32.3 % (37.0-47.0); Hemoglobin 10.6 g/dL (12.0-15.0); Mean Corpuscular HGB Conc 32.8 g/dl (32-36); Mean Corpuscular Hemoglobin 30.1 pg (26-34); Mean Corpuscular Volume 91.8 fl (80-100); Mean Platelet Volume 10.3 fl (7.4-10.4); Platelet Count Result 230 k/mm3 (150-375); Red Blood Count 3.52 M/mm3 (4.2-5.4); Red Cell Distribution Width 13.3 % (11.5-14.5); White Blood Count 13.7 K/mm3 (4.5-10.0)
[2019-11-19 06:38] LABS: Blood Urea Nitrogen 15 mg/dL (7-17); Calcium 8.4 mg/dL (8.4-10.2); Carbon Dioxide 30 mmol/L (22-30); Chloride 101 mmol/L (98-107); Estimated CRCL calculation 85 ml/min; Estimated Glomerular Filt Rate > 60; Glucose 98 mg/dL (65-105); Potassium 3.6 mmol/L (3.4-5.0); Sodium 135 mmol/L (137-145)
[2019-11-19] MEDS: ATORVASTATIN 40 MG TABLET PO (09:21)
[2019-11-19] MEDS: METOPROLOL SUCCINATE EXT REL 25 MG TABCR PO ×2 (09:21→18:02)
[2019-11-19] MEDS: AMLODIPINE BESYLATE 5 MG TABLET PO (09:21)
[2019-11-19] MEDS: ENOXAPARIN 40 MG/0.4 ML SYRINGE SUB-Q (09:22)
--- NOTE | 2019-11-19 12:06 | PM.PNGS ---
Progress Note: A&P Assessment and Plan (1) Intussusception: Code(s): K56.1 - Intussusception Status: Acute Assessment and Plan: Continue full liquids today. Increase activity, await return of bowel function. Possibly home in 1-2 days. (2) Gallstone: Qualifiers: Biliary obstruction: without biliary obstruction Cholecystitis presence: without cholecystitis Qualified Code(s): K80.20 - Calculus of gallbladder without cholecystitis without obstruction Code(s): K80.20 - Calculus of gallbladder without cholecystitis without obstruction Status: Acute (3) Atrial flutter with rapid ventricular response: Code(s): I48.92 - Unspecified atrial flutter Status: Acute (4) Complete heart block: Code(s): I44.2 - Atrioventricular block, complete Status: Acute Subjective Subjective Date/Time Seen: 11/19/19 12:06 Post Op day: 2 Patient reports: no flatus and no bowel movement Interval history: Tolerating full liquids. Pain controlled. No BM yet but feeling some rumbling around. Exam GI: Inspection: non-distended and incision (clean, dry, intact) GI Palp: Yes Tenderness to palpation present (GI) (incisional) Objective Data Vital Signs Vital Signs: Vital Signs - 24 hr 11/18/19 12:22 11/18/19 14:15 11/18/19 16:00 Temperature 36.9 C Pulse Rate 64 68 67 Respiratory Rate 12 Blood Pressure 113/58 L Pulse Oximetry 97 11/18/19 16:30 11/18/19 18:15 11/18/19 20:00 Temperature 36.9 C 37.3 C Pulse Rate 72 70 62 Respiratory Rate 16 22 H Blood Pressure 117/58 L 115/65 Pulse Oximetry 99 97 11/19/19 00:00 11/19/19 04:00 11/19/19 08:00 Temperature 36.4 C L 36.3 C L Pulse Rate 60 62 60 Respiratory Rate 20 18 Blood Pressure 108/57 L 121/60 Pulse Oximetry 94 98 11/19/19 09:11 11/19/19 09:21 11/19/19 10:00 Temperature 36.3 C L Pulse Rate 64 60 Respiratory Rate 16 Blood Pressure 102/66 Pulse Oximetry 96 94 Intake/Output Intake/Output: Intake & Output 07/01/20 11/17/19 11/18/19 11/19/19 23:59 23:59 23:59 23:59 Intake Total 2720 308 1417 470 Output Total 1400 1075 1950 400 Balance -300 -525 -20 70 Meds/Results Medications: Active Medications Generic Name Dose Route Start Last Admin Trade Name Freq PRN Reason Stop Dose Admin Acetaminophen 650 mg 11/18/19 11:54 Tylenol Tablet PO Q6H PRN Mild Pain (1-3) Hydrocodone Bitart/Acetaminophen 1 tab 11/18/19 11:52 11/19/19 05:46 [place] 5-325 Mg PO 1 tab Q4H PRN Administration Pain Rated 4-6 Hydrocodone Bitart/Acetaminophen 1 tab 11/18/19 11:52 11/19/19 00:42 [place] 10-325 Mg PO 1 tab Q4H PRN Administration Pain Rated 7-10 Alprazolam 0.5 mg 11/15/19 22:40 11/15/19 23:38 Xanax PO 0.5 mg TID PRN Administration Anxiety Amlodipine Besylate 5 mg 11/16/19 09:00 11/19/19 09:21 Norvasc PO 5 mg QAM APOLONIA Administration Atorvastatin Calcium 40 mg 11/16/19 09:00 11/19/19 09:21 Lipitor PO 40 mg DAILY APOLONIA Administration Bupropion HCl 150 mg 11/16/19 09:00 11/19/19 09:21 Wellbutrin-Sr (12 Hr) PO 150 mg DAILY APOLONIA Administration Enoxaparin Sodium 40 mg 11/18/19 09:00 11/19/19 09:22 Lovenox SUB-Q 40 mg DAILY APOLONIA Administration Melatonin 10 mg 11/16/19 21:00 11/18/19 20:57 Melatonin PO 10 mg HS APOLONIA Administration Metoprolol Succinate 25 mg 11/16/19 09:00 11/19/19 09:21 Toprol Xl PO 25 mg BID APOLONIA Administration Ondansetron HCl 4 mg 11/16/19 08:43 11/17/19 18:44 Zofran Inj IV PUSH 4 mg Q4H PRN Administration Nausea And Vomiting Scopolamine 1.5 mg 11/17/19 09:00 11/17/19 14:13 Transderm-Scop TRANSDERM 1.5 mg Q72HR APOLONIA Administration Radiology Results: ITS Impressions Chest X-Ray 11/17/19 11:44 IMPRESSION: 1: NO ACUTE CARDIOPULMONARY DISEASE. Labs Labs: Laboratory Results - last 24 hr 11/19/19 11/19/19
[2019-11-19] MEDS: MELATONIN 5 MG TABLET 10 MG PO (21:02)
[2019-11-20] VITALS (7 sets, daily range): BP systolic 121–132; BP diastolic 70–85; PULSE 60–68; RESP 12–16; TEMP 36.2–36.8; O2SAT 95–99
[2019-11-20 04:46] LABS: Hematocrit 31.1 % (37.0-47.0); Hemoglobin 10.4 g/dL (12.0-15.0); Mean Corpuscular HGB Conc 33.4 g/dl (32-36); Mean Corpuscular Hemoglobin 30.4 pg (26-34); Mean Corpuscular Volume 90.9 fl (80-100); Mean Platelet Volume 10.4 fl (7.4-10.4); Platelet Count Result 238 k/mm3 (150-375); Red Blood Count 3.42 M/mm3 (4.2-5.4); Red Cell Distribution Width 13.1 % (11.5-14.5); White Blood Count 11.2 K/mm3 (4.5-10.0)
[2019-11-20 05:01] LABS: Blood Urea Nitrogen 15 mg/dL (7-17); Calcium 8.2 mg/dL (8.4-10.2); Carbon Dioxide 29 mmol/L (22-30); Chloride 100 mmol/L (98-107); Estimated CRCL calculation 96 ml/min; Estimated Glomerular Filt Rate > 60; Glucose 106 mg/dL (65-105); Potassium 3.8 mmol/L (3.4-5.0); Sodium 135 mmol/L (137-145)
[2019-11-20] MEDS: METOPROLOL SUCCINATE EXT REL 25 MG TABCR PO (09:19)
[2019-11-20] MEDS: ATORVASTATIN 40 MG TABLET PO (09:19)
[2019-11-20] MEDS: AMLODIPINE BESYLATE 5 MG TABLET PO (09:19)
[2019-11-20] MEDS: ENOXAPARIN 40 MG/0.4 ML SYRINGE SUB-Q (09:21)
--- NOTE | 2019-11-20 11:55 | PM.DS ---
DS: Admitting Diagnosis Admitting Diagnosis Admitting Diagnosis: Abnormal findings on diagnostic imaging of other abdominal regions, including retroperitoneum DS: Discharge Diagnosis Discharge Diagnosis (1) Intussusception: Code(s): K56.1 - Intussusception Status: Acute (2) Gallstone: Qualifiers: Biliary obstruction: without biliary obstruction Cholecystitis presence: without cholecystitis Qualified Code(s): K80.20 - Calculus of gallbladder without cholecystitis without obstruction Code(s): K80.20 - Calculus of gallbladder without cholecystitis without obstruction Status: Acute (3) Complete heart block: Code(s): I44.2 - Atrioventricular block, complete Status: Acute (4) Atrial flutter with rapid ventricular response: Code(s): I48.92 - Unspecified atrial flutter Status: Acute (5) Obesity: Code(s): E66.9 - Obesity, unspecified Status: Acute (6) Anxiety: Code(s): F41.9 - Anxiety disorder, unspecified Status: Acute (7) Depression: Qualifiers: Depression Type: major depressive disorder Major depression recurrence: recurrent Active/Remission status: currently active Major depression episode severity: mild Qualified Code(s): F33.0 - Major depressive disorder, recurrent, mild Code(s): F32.9 - Major depressive disorder, single episode, unspecified Status: Acute (8) HLD (hyperlipidemia): Qualifiers: Hyperlipidemia type: unspecified Qualified Code(s): E78.5 - Hyperlipidemia, unspecified Code(s): E78.5 - Hyperlipidemia, unspecified Status: Acute (9) Hypertension: Qualifiers: Hypertension type: essential hypertension Qualified Code(s): I10 - Essential (primary) hypertension Code(s): I10 - Essential (primary) hypertension Status: Acute DS: Summary Hospital Course Reason for hospitalization: Intussusception of terminal ileum and ascending colon Hospital Course: This is 59-year-old woman who presented with vague right-sided abdominal pains over the past few weeks. She was seen by her primary care physician and as pain continued to progress, a CT of her abdomen and pelvis was obtained as an outpatient. This showed evidence of intussusception near her ileocecal valve likely caused by a lipoma. She also had evidence of cholelithiasis. She then presented to the emergency department for further workup and treatment. She was admitted to the hospital and plans were to proceed with hand assisted laparoscopic right hemicolectomy, possible laparoscopic cholecystectomy. On 11/16/2019, she went in to in irregular heart rhythm. She was placed on telemetry and was found to have long pauses with bradycardia. She was also tachycardic at times. She was found to be in complete heart block and was also having runs of atrial flutter. Cardiology was consulted and Dr. Ceballos evaluated the patient and recommended pacemaker. The patient was stable from the surgical standpoint and did not need to proceed with emergent surgery, therefore she was taken for permanent place maker placement on 11/16/2019. Her heart rate stabilized after procedure and the following day on 11/17/2019 she underwent hand assisted laparoscopic right hemicolectomy and laparoscopic cholecystectomy. Surgery was uncomplicated and she was returned to the surgical floor postoperatively. She was started on clear liquids initially. On postop day 1 she was able to be advanced to a full liquid diet. Her activity was slowly advanced as tolerated and her pain was controlled. On postop day 2 she still had not had a bowel movement but was tolerating full liquids without any nausea or bloating. On postop day 3 she was advanced to a soft diet and tolerated this well. She was discharged on postop day 3. Status at Discharge Functional status at discharge: independent ambulation Overall status at discharge: patient is progressing back to
== END 2019-11-20 14:51 | disposition home or self-care (01) | DRG 330 ==
LOC: ANHED 19:19 → ANH3MED 20:08 → ANHIMU 11-16 10:45 → ANH2MED 11-17 17:58
PROVIDERS: Emergency Medicine; Specialist; Admitting Provider Surgery; Emergency Provider Emergency Medicine; PCP Family Medicine; Visit Provider Surgery
PROC: 0JH606Z Insertion of Pacemaker, Dual Chamber into Chest Subcutaneous Tissue and Fascia, Open Approach (ICD-10-PCS; CPT 33208; principal; 2019-11-16 11:45)
PROC: 0DTF4ZZ Resection of Right Large Intestine, Percutaneous Endoscopic Approach (ICD-10-PCS; CPT 44204; principal; 2019-11-17 15:00)
PROC: 0FT44ZZ Resection of Gallbladder, Percutaneous Endoscopic Approach (ICD-10-PCS; CPT 47562; 2019-11-17 15:00)
DX: K56.1 Intussusception (principal); I44.2 Atrioventricular block, complete; I48.92 Unspecified atrial flutter; D17.5 Benign lipomatous neoplasm of intra-abdominal organs; K80.20 Calculus of gallbladder without cholecystitis without obstruction; F41.9 Anxiety disorder, unspecified; F32.9 Major depressive disorder, single episode, unspecified; E87.5 Hyperkalemia; I10 Essential (primary) hypertension; E78.5 Hyperlipidemia, unspecified; E66.9 Obesity, unspecified; Z68.36 Body mass index [BMI] 36.0-36.9, adult
CPT/HCPCS: 33208; 36415; 71045; 71046; 74177; 80048; 80053; 81003; 83605; 83690; 85025; 85027; 85610; 85730; 86850; 86900; 86901; 88304; 88309; 93005; 96361; 96374; 99285; A9270; C1779; C1785; J0131; J0690; J1170; J1650; J1741; J2250; J2270; J2405; J3010; J3480; J7030; J7040; J7042; J7120; Q9967

== ENCOUNTER 2022-02-24 14:58 | Emergency (ER) | payer OTHER, SELFPAY ==
[2022-02-24] VITALS (11 sets, daily range): BP systolic 117–155; BP diastolic 75–102; PULSE 62–71; RESP 12–26; TEMP 36.8; O2SAT 96–100
--- NOTE | ~2022-02-24 | CT_ITS ---
EXAMINATION: CTA brain carotid DATE: 02/24/2022 19:30 INDICATION: lightheaded, dizziness, unsteady, old stroke CT TECHNIQUE: Computed tomographic angiography (CTA) of the head and neck was performed with 100 mL Omni paque-350 intravenous contrast. Automated exposure control and iterative reconstruction technique wer e employed. The dose-length product was 1085.47 mGy-cm. Maximum intensity projection and volume rende red 3D-reconstructions were created by the technologist on a separate workstation. COMPARISON: CT brain, same date. FINDINGS: CTA HEAD: No large vessel occlusion, aneurysm, high flow vascular malformation, nidus or extravasation. Calcifi ed plaque in the bilateral cavernous carotids, without significant stenosis. CTA NECK: Aortic arch and proximal great vessels: No calcifications at the visualized aortic arch and proximal great vessels. Right common carotid, carotid bifurcation, and internal carotid artery: No carotid plaque.There is 0% stenosis of the proximal right internal carotid artery relative to normal distal artery lumen diamet er (NASCET criteria). Left common carotid, carotid bifurcation, and internal carotid artery: No carotid plaque.There is 0% stenosis of the proximal left internal carotid artery relative to normal distal artery lumen diameter (NASCET criteria). Vertebral arteries: No significant plaque or stenosis. Other findings: Subcentimeter right thyroid hypodensities that require no additional evaluation. Cerv ical spondylosis. IMPRESSION: No large vessel occlusion. No significant carotid or vertebral artery stenosis. Reviewed, dictated and finalized at location K.
--- NOTE | ~2022-02-24 | CT_ITS ---
EXAMINATION: CT brain wo con INDICATION: Lightheadedness and dizziness COMPARISON: None TECHNIQUE: Standard unenhanced head CT. The dose-length product (DLP) was 605.33 mGy-cm. The mA was a djusted according to patient size. Iterative reconstruction technique was employed. FINDINGS: There is no intracranial hemorrhage, acute infarction, or abnormal mass lesion. There is lo w attenuation in the right caudate and anterior limb of the right internal capsule. The ventricles ar e normal. There is no abnormal mass effect or midline shift. The basal cisterns are patent. The orbit s are normal. The paranasal sinuses, mastoids and calvarium are normal. IMPRESSION: 1. Low-attenuation in the right caudate and anterior limb of the right internal capsule suggestive of prior infarction without acute intracranial abnormality. Reviewed, dictated and finalized at location A.
--- NOTE | ~2022-02-24 | XR_ITS ---
EXAMINATION: XR chest 2V DATE: 02/24/2022 15:30 INDICATION: Weakness TECHNIQUE: PA and lateral views of the chest are obtained. COMPARISON: 11/17/2019 FINDINGS: The lungs are free of acute opacities. No pleural effusion or pneumothorax. The cardiomedia stinal silhouette is normal. There is mild thoracic spondylosis. A dual-lead cardiac pacemaker of the left chest wall ends with leads in expected locations. IMPRESSION: 1. No acute cardiopulmonary abnormality. Reviewed, dictated and finalized at location A.
--- NOTE | 2022-02-24 15:02 | ECG_ITS ---
Measurements Intervals [place] Rate: 66 P: 260 WA: 243 QRS: 1 QRSD: 93 T: 23 QT: 397 QTc: 418 Interpretive Statements POSSIBLE ELECTRONIC ATRIAL PACEMAKER LOW QRS VOLTAGE IN PRECORDIAL LEADS [QRS DEFLECTION < 1.0 mV IN CHEST LEADS] ABNORMAL RHYTHM ECG COMPARED TO ECG 11/16/2019 14:52:40 NO SIGNIFICANT CHANGES Electronically Signed On 02-25-2022 13:10:01 CDT by Irais Jasso M.D.
--- NOTE | 2022-02-24 15:18 | ED.GENADULT ---
HPI - General Adult General Chief complaint: Weakness Stated complaint: gen weak/dizzy Time Seen by Provider: 02/24/22 15:10 Source: patient Mode of arrival: EMS Limitations: no limitations History of Present Illness HPI narrative: Patient is a 61 y/o female who presents to the ED via EMS with c/o lightheadedness. Patient reports she was at work today when she began to feel unwell around 10:30 AM. She states she began to feel very weak, lightheaded, unsteady, nauseous, sweaty. Denied any focal weakness, vomiting, room spinning sensation. Symptoms continued throughout the day, so EMS was called. Patient c/o a CLARK and lightheadedness still currently, worse when she tries to sit or stand up. Denies any chest pain, palpitations, difficulty breathing, abdominal pain, pain or swelling in legs, vision changes, syncope, recent cough or cold symptoms, fevers. Patient has pacemaker. Sees Dr. Ceballos. She is on Xarelto. Related Data Home Medications Medication Instructions Recorded Confirmed melatonin 10 mg tablet 10 mg PO HS PRN Insomnia 11/15/19 12/05/21 multivitamin 1 tablet PO DAILY 11/29/20 12/05/21 Allergies Allergy/AdvReac Type Severity Reaction Status Date / Time trazodone AdvReac Severe psychosis Verified 02/24/22 15:05 cold medications AdvReac Severe tachycardia Uncoded 12/05/21 08:28 Review of Systems Review of Systems: CONSTITUTIONAL: Denies fever, chills, or sweats. EYES: Denies visual changes. ENT: Denies rhinorrhea, congestion, sore throat. CARDIOVASCULAR: Denies chest pain, palpitations, or BLE edema. RESPIRATORY: Denies cough or dyspnea. GASTROINTESTINAL: Reports nausea. Denies abdominal pain, vomiting, or diarrhea. MUSCULOSKELETAL: Denies back pain, joint pain, or BLE pain. NEUROLOGIC: Reports CLARK, lightheadedness, generalized weakness. Denies tingling, syncope, numbness, or focal weakness. All systems reviewed & are unremarkable except as noted in HPI and below PMFSH Past Medical History Medical History Afib Anxiety Chronic knee pain Depression Gallstone HLD (hyperlipidemia) Hypertension Intussusception Obesity Throat congestion Vitamin D deficiency Surgical History Surgical History History of laparoscopic cholecystectomy 11/17/19 History of right hemicolectomy 11/17/19 History of tubal ligation 1994 Status post placement of cardiac pacemaker Family History Family History (Updated 12/05/21 @ 08:33 by Hailee Sorto [facility]) Mother Sudden cardiac , Onset Age: 49 Father Lung cancer Acute myocardial infarction Sibling Lung cancer Social History Social History Smoking status: Never smoker Second hand tobacco smoke exposure: No Alcohol intake: current Drinks per week: 1 Alcohol use details: socially; seldom Substance use: never Substance use type: does not use Gender identity (if verbalized by the patient): Female Spiritual care concerns: No Exam Narrative: GENERAL: Mildly ill appearing, obese, non-toxic, in no acute distress. HEAD: Normocephalic, atraumatic. EYES: PERRL/EOMI, conjunctivae clear bilaterally. No nystagmus. NOSE: Normal, no drainage. EARS: TMS clear, with good light reflex. No erythema or bulging. No impaction. THROAT: Pharynx clear, no exudate. MMs dry. NECK: Supple. No adenopathy, no masses. RESPIRATORY: Airway patent, respirations nonlabored. Clear to auscultation bilaterally, no rales, rhonchi, wheezing. CARDIOVASCULAR: Regular rate and rhythm without murmurs, rubs, or gallops. Peripheral pulses 2+ and equal bilaterally. ABDOMINAL: Soft, nontender, nondistended, no hepatosplenomegaly. Normoactive BS. MUSCULOSKELETAL: Moves all extremities. Strength/ROM intact without gross deformities. No edema. No calf tenderness. SKIN: Warm, dry, normal color. No rashes.
[2022-02-24 15:20] LABS: Hematocrit 37.4 % (37.0-47.0); Hemoglobin 12.5 g/dL (12.0-15.0); Mean Corpuscular HGB Conc 33.4 g/dl (32-36); Mean Corpuscular Hemoglobin 30.9 pg (26-34); Mean Corpuscular Volume 92.3 fl (80-100); Mean Platelet Volume 10.3 fl (7.4-10.4); Platelet Count Result 270 k/mm3 (150-375); Red Blood Count 4.05 M/mm3 (4.2-5.4); Red Cell Distribution Width 13.6 % (11.5-14.5); White Blood Count 9.8 K/mm3 (4.5-10.0)
[2022-02-24 15:32] LABS: Alanine Aminotransferase 22 U/L (6-35); Albumin Level 4.1 g/dL (3.5-5.1); Alkaline Phosphatase 77 U/L (38-126); Anion Gap 8 mmol/L (8-16); Aspartate Amino Transferase 24 U/L (14-36); Bilirubin,Total 0.6 mg/dL (0.2-1.3); Blood Urea Nitrogen 14 mg/dL (7-17); Calcium 8.6 mg/dL (8.4-10.2); Carbon Dioxide 25 mmol/L (22-30); Chloride 104 mmol/L (98-107); Estimated CRCL calculation 68 ml/min; Estimated Glomerular Filt Rate 57; Glucose 104 mg/dL (65-110); Sodium 137 mmol/L (137-145)
[2022-02-24] MEDS: SODIUM CHLORIDE 0.9% IV 1,000 ML 999 ML IV CONT ×2 (15:57→19:33)
[2022-02-24 16:12] LABS: Add Urine Microscopic? NO; Appearance Urine Clear (Clear); Bilirubin Urine Negative (Negative); Blood Urine Negative (Negative); Color Urine Straw (Yellow); Glucose Urine UA Negative (Negative); Ketones Urine Negative (Negative); Leukocyte Esterase Ur Negative LEU/UL (Negative); Nitrate Urine Negative (Negative); Protein Urine Negative (Negative); Urobilinogen Urine Negative mg/dL (<2.0)
[2022-02-24 16:32] LABS: D Dimer 0.38 ug/mL (<0.48); Troponin I < 0.012 ng/mL (0.000-0.034)
[2022-02-24 16:34] LABS: Specific Grav Ur 1.004 (1.001-1.035)
[2022-02-24] MEDS: MECLIZINE HCL 25 MG TABLET PO (19:32)
== END 2022-02-24 20:45 | disposition home or self-care (01) ==
PROVIDERS: Physician Assistant; Emergency Provider Emergency Medicine; PCP Family Medicine
DX: R42 Dizziness and giddiness (principal); I48.91 Unspecified atrial fibrillation; E78.5 Hyperlipidemia, unspecified; I10 Essential (primary) hypertension; E66.9 Obesity, unspecified; Z68.38 Body mass index [BMI] 38.0-38.9, adult; E55.9 Vitamin D deficiency, unspecified; R94.31 Abnormal electrocardiogram [ECG] [EKG]
CPT/HCPCS: 36415; 70450; 70496; 70498; 71046; 80053; 81003; 84484; 85025; 85380; 93005; 96360; 96361; 99284; A9270; J7030; Q9967

== ENCOUNTER 2022-12-08 15:16 | Outpatient (CLI) | payer OTHER, SELFPAY ==
--- NOTE | ~2022-12-08 | MM_ITS ---
EXAMINATION: MM screening jennifer BI w everette HISTORY: Screening mammogram TECHNIQUE: Craniocaudal and mediolateral oblique 3-D tomosynthesis images were obtained and synthetic 2-D images were generated. CAD analysis was submitted and interpreted. COMPARISON: No prior mammogram is available for comparison at this institution. BREAST PARENCHYMAL COMPOSITION: There are scattered areas of fibroglandular density. FINDINGS: RIGHT BREAST: There is a possible mass in the posterior third of the outer breast approximately 12 cm from the nipple. LEFT BREAST: There is a possible mass in the middle third of the slightly outer breast 5 cm from the nipple. IMPRESSION: 1. Possible breast masses. 2. Additional mammographic views and possible breast ultrasound are recommended. BI-RADS Category 0: Incomplete: Needs additional imaging evaluation. Reviewed, dictated and finalized at location A. IMPRESSION: 1. Possible breast masses. 2. Additional mammographic views and possible breast ultrasound are recommended . BI-RADS Category 0: Incomplete: Needs additional imaging evaluation.
== END 2022-12-08 15:17 | disposition home or self-care (01) ==
PROVIDERS: PCP Family Medicine; Visit Provider Physician Assistant Medical
DX: Z12.31 Encounter for screening mammogram for malignant neoplasm of breast (principal); R92.8 Other abnormal and inconclusive findings on diagnostic imaging of breast
CPT/HCPCS: 77063; 77067

== ENCOUNTER 2022-12-10 20:33 | Observation (INO) | payer OTHER, SELFPAY ==
--- NOTE | ~2022-12-10 | XR_ITS ---
XR abdomen/kub 1V 12/12/2022 14:06 INDICATION: Small bowel obstruction TECHNIQUE: KUB COMPARISON: 11/10/2019 FINDINGS: Bowel gas pattern is normal. There is no evidence of free air, mass, organomegaly, ascites or obstruction. No abnormal calculi are seen. The bones appear intact. There are cholecystectomy c lips. IMPRESSION: 1: No acute abdominal abnormality identified. Reviewed, dictated and finalized at location A.
--- NOTE | ~2022-12-10 | US_ITS ---
US abdomen limited INDICATION: Elevated liver function tests. PROCEDURE: Realtime right upper abdominal ultrasound. COMPARISON: CT abdomen performed 12/11/2022 at 1:13 AM. FINDINGS: The pancreas is normal without focal mass or pancreatic ductal dilation. Liver echotexture is increased, consistent with fatty infiltration. There is normal directional flow in the portal ve in. Gallbladder is surgically absent. Common bile duct measures 7.9 mm. No sonographic Forde's sign. IMPRESSION: 1: Hepatic steatosis. 2: Status post cholecystectomy with expected prominence of the common bile duct. Reviewed, dictated and finalized at location A. IMPRESSION: 1: Hepatic steatosis. 2: Status post cholecystectomy with expected prominence of the common bile duct .
--- NOTE | ~2022-12-10 | CT_ITS ---
CT of the Abdomen and Pelvis: Indication: Abdominal pain Technique: 2.5 mm axial scans were obtained through the abdomen and pelvis following intravenous adm inistration of 100 cc of Omnipaque 350. Dose reduction technique was used on this scan by utilizing a utomated exposure control and iterative reconstruction technique. The dose-length product (DLP) was 1 164.91 mGy-cm. COMPARISON: 11/15/2019 Findings: Scans through the lung bases are unremarkable. The liver, spleen, pancreas, adrenals and kidneys are within normal limits. Cholecystectomy clips are present. No evidence of aortic aneurysm. No lymphadenopathy. There is sigmoid diverticulosis. There is wall thickening of several small bowel loops with mild engo rgement of the vasa recta. No abscess or free air. Images through the pelvis were performed. Urinary bladder unremarkable. No adnexal mass seen. Small a mount of abdominopelvic ascites present, with mild increased attenuation. Impression: Infectious/inflammatory small bowel enteritis. No abscess or free air. Possible mild reactive ileus of the involved loops. Small amount of abdominopelvic ascites, some which demonstrates mild increased attenuation. Hemorrhag ic ascites is a consideration. Reviewed, dictated and finalized at location . Impression: Infectious/inflammatory small bowel enteritis. No abscess or free air. Possibl e mild reactive ileus of the involved loops. Small amount of abdominopelvic ascites, some which demonstrates mild increased attenuation. Hemorrhagic ascites is a consideration.
[2022-12-10 20:35] VITALS: BP 127/93; PULSE 82; RESP 14; TEMP 36.8; O2SAT 100
[2022-12-10 20:46] LABS: Basophils Absolute Auto 0.1 K/mm3 (0.0-0.1); Basophils Percent Auto 0.4 % (0.2-1.2); Eosinophils Absolute Auto 0.2 K/mm3 (0-0.3); Eosinophils Percent Auto 1.1 % (0-4.4); Hematocrit 41.8 % (37.0-47.0); Hemoglobin 13.9 g/dL (12.0-15.0); Immature Granulocyte Absolute 0.08 K/mm3 (0.00-0.031); Immature Granulocyte Percent A 0.6 % (0-0.5); Lymphocytes Absolute Auto 3.37 K/mm3 (0.9-3.2); Lymphocytes Percent Auto 25.5 % (18.3-44.2); Mean Corpuscular HGB Conc 33.3 g/dl (32-36); Mean Corpuscular Hemoglobin 30.3 pg (26-34); Mean Corpuscular Volume 91.1 fl (80-100); Mean Platelet Volume 10.1 fl (7.4-10.4); Monocytes Percent Auto 7.7 % (2.6-8.5); Neutrophils Absolute Auto 8.5 K/mm3 (1.3-6.7); Neutrophils Percent Auto 64.7 % (45.5-73.1); Platelet Count Result 304 k/mm3 (150-375); Red Blood Count 4.59 M/mm3 (4.2-5.4); Red Cell Distribution Width 13.7 % (11.5-14.5); White Blood Count 13.2 K/mm3 (4.5-10.0)
[2022-12-10 21:00] LABS: Alanine Aminotransferase 22 U/L (6-35); Albumin Level 4.4 g/dL (3.5-5.1); Alkaline Phosphatase 77 U/L (38-126); Anion Gap 10 mmol/L (8-16); Aspartate Amino Transferase 25 U/L (14-36); Bilirubin,Total 0.8 mg/dL (0.2-1.3); Blood Urea Nitrogen 16 mg/dL (7-17); Calcium 8.9 mg/dL (8.4-10.2); Carbon Dioxide 25 mmol/L (22-30); Chloride 101 mmol/L (98-107); Estimated CRCL calculation 68 ml/min; Estimated Glomerular Filt Rate 57; Glucose 107 mg/dL (65-110); Lipase 56 U/L (23-300); Potassium 4.2 mmol/L (3.4-5.0); Sodium 136 mmol/L (137-145)
[2022-12-10 21:03] LABS: Appearance Urine Clear (Clear); Bilirubin Urine Negative (Negative); Blood Urine Negative (Negative); Color Urine Yellow (Yellow); Glucose Urine UA Negative (Negative); Ketones Urine Negative (Negative); Leukocyte Esterase Ur Negative LEU/UL (Negative); Nitrate Urine Negative (Negative); Protein Urine Negative (Negative); Specific Grav Ur 1.008 (1.001-1.035); Urobilinogen Urine 0.2 mg/dL (<2.0)
[2022-12-10 21:24] LABS: Add Urine Microscopic? NO
--- NOTE | 2022-12-10 23:57 | ED.ABDPAIN ---
HPI - Abdominal Pain General Chief Complaint: Abdominal Pain Stated Complaint: abdominal pain Time Seen by Provider: 12/10/22 23:38 Source: patient Mode of arrival: ambulatory Limitations: no limitations History of Present Illness HPI narrative: this is a 62-year-old female that presents to emergency department for abdominal pain. Present over the last 2 days. Associated with diarrhea And subjective fever. Denies vomiting, hematochezia, melena, or dysuria. Related Data Home Medications Medication Instructions Recorded Confirmed melatonin 10 mg tablet 10 mg PO HS PRN Insomnia 11/15/19 11/05/22 multivitamin 1 tablet PO DAILY 11/29/20 11/05/22 alprazolam 0.5 mg tablet (Xanax) 0.5 mg PO DAILY 11/05/22 11/05/22 Allergies Allergy/AdvReac Type Severity Reaction Status Date / Time trazodone AdvReac Severe psychosis Verified 12/10/22 20:34 cold medications AdvReac Severe tachycardia Uncoded 12/10/22 20:34 Review of Systems Review of Systems: CONSTITUTIONAL: Denies fever GASTROINTESTINAL: Reports abdominal pain, and diarrhea. Denies nausea and vomiting GENITOURINARY: Denies dysuria All systems reviewed & are unremarkable except as noted in HPI and below PMFSH Past Medical History Medical History Afib Anxiety Chronic knee pain Complete heart block Depression Gallstone HLD (hyperlipidemia) Hypertension Lipoma of colon Obesity Vitamin D deficiency Surgical History Surgical History History of laparoscopic cholecystectomy 11/17/19 History of right hemicolectomy 11/17/19 History of tubal ligation 1994 Status post placement of cardiac pacemaker Family History Family History Mother Sudden cardiac , Onset Age: 49 Father Lung cancer Acute myocardial infarction Sibling Lung cancer Social History Social History Smoking status: Never smoker Second hand tobacco smoke exposure: No Alcohol intake: current Drinks per week: 1 Alcohol use details: socially; seldom Substance use: never Substance use type: does not use Lack of Transportation: No Lack of Food: Never True Current Housing: I Have Housing Concerned About Future Housing: No Difficulty Paying Gas/Electric Bills: No Difficulty Paying for Meds: No Currently Unemployed: No Education: High School Diploma/GED Difficulty w/ Childcare or Family Care: No Gender identity (if verbalized by the patient): Female Spiritual care concerns: No Exam Narrative: GENERAL: Well-appearing, well-nourished, and in no acute distress. HEAD: Normocephalic, atraumatic. EYES: EOMI. CHEST: Clear to auscultation. No respiratory distress. No wheezes rales or rhonchi HEART: Regular rate and rhythm. No murmur heard. Normal peripheral pulses. ABDOMEN: Soft, nondistended, normal active bowel sounds. Tender to palpation throughout the mid abdomen, without guarding EXTREMITIES: Normal range of motion. No edema. SKIN: Warm, dry, no rash. NEURO: No focal deficits. Alert and oriented x3. PSYCH: Normal mood and affect Course Course Emergency Course: Patient and family updated on workup and agree with plan of care Consultations Consultation #1: Spoke with hospitalist about patient and workup who accepts admission Date: 12/11/22 Vital Signs Vital signs: Vital Signs Temperature 98.3 F 12/10/22 20:35 Pulse Rate 82 12/10/22 20:35 Respiratory Rate 14 12/10/22 20:35 Blood Pressure 127/93 H 12/10/22 20:35 Pulse Oximetry 100 12/10/22 20:35 Oxygen Delivery Room Air 12/10/22 20:35 Temperature 98.3 F 12/10/22 20:35 Pulse Rate 82 12/10/22 20:35 Respiratory Rate 14 12/10/22 20:35 Blood Pressure 127/93 H 12/10/22 20:35 Pulse Oximetry 100 12/10/22 20:35 Oxygen Delivery Room A
[2022-12-11] MEDS: ONDANSETRON INJ 4 MG/2 ML VIAL IV PUSH ×3 (00:55→21:11)
[2022-12-11] MEDS: MORPHINE SULFATE (*CRX) 4 MG/ML INJ IV PUSH ×3 (00:55→21:03)
[2022-12-11] MEDS: fentaNYL CITRATE INJ (*CRX) 100 MCG/2 ML VIAL 50 MCG IV PUSH (03:04)
[2022-12-11 04:45] VITALS: BP 105/65; PULSE 66; RESP 15; O2SAT 97
[2022-12-11 05:05] LABS: Lactic Acid Reflex 0.7 mmol/L (0.7-2.0)
[2022-12-11 05:22] VITALS: PULSE 66; RESP 15; O2SAT 97
--- NOTE | 2022-12-11 05:24 | ADMGEN ---
This patient, Rosa Anderson, was admitted to [facility] Surg Room 311-01. Patient/family oriented to hospital policies and general routines including ID bracelet, bed and alarms, visiting hours, pain management, procedures, bathroom and other care routines, personal items, smoking policy, room service/diet, and visiting hours. Information on how to activate the Rapid Response Team has been discussed. Patient/Family are encouraged to report perceived risks to care and to ask questions if they do not understand what they are told or what they should do.
[2022-12-11 05:38] VITALS: BP 141/85; PULSE 80; RESP 14; TEMP 36.2; O2SAT 99
[2022-12-11 05:41] VITALS: BMI 34.4
[2022-12-11] MEDS: SODIUM CHLORIDE 0.9% IV 1,000 ML 125 ML IV CONT ×3 (05:44→20:54)
--- NOTE | 2022-12-11 11:36 | PM.IMHP ---
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 She presents to the ED with complaints of abdominal pain, nausea, and diarrhea with low grade fever of 100 for the last 3-4 days. She says that on Thursday she was having an upset stomach but she didn't think much of it. Her appetite declined over the next few days with persistent nausea and bloating accompanied with severe abdominal pain. The pain is diffuse throughout her abdomen with areas of increased tenderness over the right upper quadrant traveling horizontally to the left upper quadrant. The only thing that helps the pain is lying still. Movement, palpation, and deep inspiration make the pain worse. She has never had pain like this before with such severity. She tried gas x and omeprazole to help the bloating but found no relief. She is receiving prn Dilaudid and fentanyl which she states helps but does not completely take the pain away. She denies recent sick contact. She does say that she had some chicken salad a few days ago which she thought tasted funny. Initial lab work was unimpressive with a mild leukocytosis of 13.2 and normal liver function studies. Repeat labs today showed markedly elevated liver enzymes. A right upper quadrant ultrasound was ordered which showed hepatic steatosis and expected changes after previous cholecystectomy. She has been admitted with IV fluid hydration, NPO, pain control, and GI consultation for elevated liver enzymes. CT of abdomen and pelvis results as followed; Impression: Infectious/inflammatory small bowel enteritis. No abscess or free air.? Possible mild reactive ileus of the involved loops. Small amount of abdominopelvic ascites, some which demonstrates mild increased attenuation. Hemorrhagic ascites is a consideration. Review of Systems Review of Systems: All systems reviewed & are unremarkable except as noted in HPI and below PMFSH Past Medical History Medical History Afib Anxiety Chronic knee pain Complete heart block Depression Gallstone HLD (hyperlipidemia) Hypertension Lipoma of colon Obesity Vitamin D deficiency Surgical History Surgical History History of laparoscopic cholecystectomy 11/17/19 History of right hemicolectomy 11/17/19 History of tubal ligation 1994 Status post placement of cardiac pacemaker Family History Family History Mother Sudden cardiac , Onset Age: 49 Father Lung cancer Acute myocardial infarction Sibling Lung cancer Social History Social History Smoking status: Never smoker Second hand tobacco smoke exposure: No Alcohol intake: never Drinks per week: 1 Alcohol use details: socially; seldom Substance use: never Substance use type: does not use Lack of Transportation: No Lack of Food: Never True Current Housing: I Have Housing Concerned About Future Housing: No Difficulty Paying Gas/Electric Bills: No Difficulty Paying for Meds: No Currently Unemployed: No Education: High School Diploma/GED Difficulty w/ Childcare or Family Care: No Gender identity (if verbalized by the patient): Female Spiritual care concerns: No Meds Home Medications and Allergies Home Medications Medication Instructions Recorded Confirmed Type melatonin 10 mg tablet 10 mg PO HS PRN Insomnia 11/15/19 12/11/22 History multivitamin 1 tablet PO DAILY 11/29/20 12/11/22 History rivaroxaban 20 mg tablet 20 mg PO DAILY #90 tabs 08/06/22 12/11/22 Rx alprazolam 0.5 mg tablet (Xanax) 0.5 mg PO INDU
[2022-12-11 12:12] LABS: Basophils Percent Auto 0.5 % (0.2-1.2); Eosinophils Absolute Auto 0.1 K/mm3 (0-0.3); Eosinophils Percent Auto 0.7 % (0-4.4); Hematocrit 37.7 % (37.0-47.0); Hemoglobin 12.4 g/dL (12.0-15.0); Immature Granulocyte Absolute 0.05 K/mm3 (0.00-0.031); Immature Granulocyte Percent A 0.6 % (0-0.5); Lymphocytes Absolute Auto 1.79 K/mm3 (0.9-3.2); Lymphocytes Percent Auto 21.7 % (18.3-44.2); Mean Corpuscular HGB Conc 32.9 g/dl (32-36); Mean Corpuscular Hemoglobin 30.2 pg (26-34); Mean Corpuscular Volume 91.7 fl (80-100); Monocytes Absolute Auto 0.6 K/mm3 (0.1-0.6); Monocytes Percent Auto 7.3 % (2.6-8.5); Neutrophils Absolute Auto 5.7 K/mm3 (1.3-6.7); Neutrophils Percent Auto 69.2 % (45.5-73.1); Platelet Count Result 241 k/mm3 (150-375); Red Blood Count 4.11 M/mm3 (4.2-5.4); Red Cell Distribution Width 13.5 % (11.5-14.5); White Blood Count 8.2 K/mm3 (4.5-10.0)
[2022-12-11] MEDS: KETOROLAC 30 MG/ML VIAL (*BKC) IV PUSH (12:17)
[2022-12-11 12:23] LABS: Alanine Aminotransferase 140 U/L (6-35); Albumin Level 3.8 g/dL (3.5-5.1); Alkaline Phosphatase 155 U/L (38-126); Anion Gap 5 mmol/L (8-16); Aspartate Amino Transferase 279 U/L (14-36); Bilirubin,Total 1.6 mg/dL (0.2-1.3); Blood Urea Nitrogen 14 mg/dL (7-17); Calcium 8.2 mg/dL (8.4-10.2); Carbon Dioxide 26 mmol/L (22-30); Chloride 103 mmol/L (98-107); Estimated CRCL calculation 82 ml/min; Estimated Glomerular Filt Rate > 60; Glucose 125 mg/dL (65-110); Potassium 3.9 mmol/L (3.4-5.0); Sodium 134 mmol/L (137-145)
[2022-12-11 12:24] LABS: INR 1.1; Prothrombin Time 14.6 Seconds (11.1-14.7)
[2022-12-11 13:42] VITALS: BP 117/66; PULSE 66; RESP 16; TEMP 35.9; O2SAT 96
[2022-12-11] MEDS: FAMOTIDINE 20 MG/2 ML VIAL IV PUSH (20:53)
[2022-12-11 21:39] VITALS: BP 152/97; PULSE 74; RESP 18; TEMP 36.6; O2SAT 94
[2022-12-11] MEDS: DEXTROSE 5%/0.45% SOD CHL 1,000 ML 75 ML IV CONT (22:40)
[2022-12-12 06:00] VITALS: BP 112/78; PULSE 64; RESP 16; TEMP 36.3; O2SAT 93
[2022-12-12] MEDS: ONDANSETRON INJ 4 MG/2 ML VIAL IV PUSH ×2 (06:35→13:20)
--- NOTE | 2022-12-12 06:35 | PC.NURSE ---
pt c/o nausea and a headache, and asked for medicine for both. IV zofran administered, however pt refuses morphine at this time stating that she thinks it caused her to be sick last night
[2022-12-12 06:41] LABS: Basophils Percent Auto 0.5 % (0.2-1.2); Eosinophils Absolute Auto 0.1 K/mm3 (0-0.3); Eosinophils Percent Auto 1.2 % (0-4.4); Hematocrit 36.4 % (37.0-47.0); Immature Granulocyte Absolute 0.11 K/mm3 (0.00-0.031); Immature Granulocyte Percent A 1.5 % (0-0.5); Lymphocytes Absolute Auto 1.75 K/mm3 (0.9-3.2); Lymphocytes Percent Auto 23.9 % (18.3-44.2); Mean Corpuscular Hemoglobin 30.5 pg (26-34); Mean Corpuscular Volume 92.4 fl (80-100); Mean Platelet Volume 10.1 fl (7.4-10.4); Monocytes Absolute Auto 0.5 K/mm3 (0.1-0.6); Monocytes Percent Auto 6.6 % (2.6-8.5); Neutrophils Absolute Auto 4.9 K/mm3 (1.3-6.7); Neutrophils Percent Auto 66.3 % (45.5-73.1); Platelet Count Result 235 k/mm3 (150-375); Red Blood Count 3.94 M/mm3 (4.2-5.4); Red Cell Distribution Width 13.2 % (11.5-14.5); White Blood Count 7.3 K/mm3 (4.5-10.0)
[2022-12-12 06:51] LABS: INR 1.1; Prothrombin Time 14.2 Seconds (11.1-14.7)
[2022-12-12 06:52] LABS: Partial Thromboplastin Time 29.6 SECONDS (22.3-36.8)
[2022-12-12 07:04] LABS: Alanine Aminotransferase 155 U/L (6-35); Albumin Level 3.6 g/dL (3.5-5.1); Alkaline Phosphatase 153 U/L (38-126); Anion Gap 4 mmol/L (8-16); Aspartate Amino Transferase 174 U/L (14-36); Bilirubin,Total 0.9 mg/dL (0.2-1.3); Blood Urea Nitrogen 11 mg/dL (7-17); Calcium 8.2 mg/dL (8.4-10.2); Carbon Dioxide 28 mmol/L (22-30); Chloride 104 mmol/L (98-107); Estimated CRCL calculation 82 ml/min; Estimated Glomerular Filt Rate > 60; Glucose 107 mg/dL (65-110); Lipase 39 U/L (23-300); Magnesium 2.1 mg/dL (1.6-2.3); Potassium 3.8 mmol/L (3.4-5.0); Sodium 136 mmol/L (137-145)
[2022-12-12 07:09] LABS: Lactic Acid Reflex 0.8 mmol/L (0.7-2.0)
[2022-12-12 07:23] LABS: Acetaminophen < 10 ug/mL (10-30)
[2022-12-12 07:44] LABS: Hepatitis B Surface Antigen Negative (Negative)
[2022-12-12 07:50] LABS: HAV RESULT Negative (Negative); Hepatitis B Core IgM Result Negative (Negative)
[2022-12-12 08:01] LABS: Hepatitis B Surface Anti Res Negative
[2022-12-12] MEDS: FAMOTIDINE 20 MG/2 ML VIAL IV PUSH ×2 (08:48→20:14)
[2022-12-12] MEDS: ENOXAPARIN 40 MG/0.4 ML SYRINGE SUB-Q (08:48)
[2022-12-12] MEDS: DEXTROSE 5%/0.45% SOD CHL 1,000 ML 75 ML IV CONT (13:20)
--- NOTE | 2022-12-12 13:48 | PM.IMPN ---
Progress Note: A&P Assessment and Plan (1) Intractable abdominal pain: Code(s): R10.9 - Unspecified abdominal pain Status: Acute Assessment and Plan: Rates 10/10 with movement and 7/10 at rest. Pain is constant but exacerbated with inspiration and movement. -Feels her pain is not helped by the morphine. Can try fentanyl instead. -IV fluids -Working diagnosis of enteritis vs SBO -Patient reports low grade fever at home of 100. Afebrile currently. -WBC mildly elevated at 13. Now normal. Will continue to trend. Hold off on antibiotics for now. -Diarrhea for the last few days. However is not having diarrhea since admission. -Conservative management for suspicious SBO. Says she had vomiting last night. Will get KUB to see if she needs NG for decompression. (2) Atrial flutter with rapid ventricular response: Code(s): I48.92 - Unspecified atrial flutter Status: Acute Assessment and Plan: Rate controlled on metoprolol 25 mg PO BID -holding due to nausea. Can start IVP metoprolol Q 6 scheduled if needed. -Pacemaker for complete heart block (3) HLD (hyperlipidemia): Qualifiers: Hyperlipidemia type: unspecified Qualified Code(s): E78.5 - Hyperlipidemia, unspecified Code(s): E78.5 - Hyperlipidemia, unspecified Status: Acute Assessment and Plan: Currently not receiving treatment -obtain am lipid panel (4) Hypertension: Qualifiers: Hypertension type: essential hypertension Qualified Code(s): I10 - Essential (primary) hypertension Code(s): I10 - Essential (primary) hypertension Status: Acute Assessment and Plan: Currently controlled on home regimen with amlodipine Holding due to nausea, vomiting Blood pressures reviewed, running 117/70. Continue to monitor trend. (5) Abnormal liver function test: Code(s): R79.89 - Other specified abnormal findings of blood chemistry Status: Acute Assessment and Plan: T bili 1.6, AST 279, ALT 140, Alkphos 155 initially were WNL on admission. Repeat labs 18 hours later showed acute elevation GI consult placed, appreciate recs RUQ US negative CT abdomen pelvis impression infectious/inflammatory small bowel enteritis. No abscess or free air.? Possible mild reactive ileus of the involved loops. Small amount of abdominopelvic ascites, some which demonstrates mild increased attenuation. Hemorrhagic ascites is a consideration. 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 She presents to the ED with complaints of abdominal pain, nausea, and diarrhea with low grade fever of 100 for the last 3-4 days. She says that on Thursday she was having an upset stomach but she didn't think much of it. Her appetite declined over the next few days with persistent nausea and bloating accompanied with severe abdominal pain. The pain is diffuse throughout her abdomen with areas of increased tenderness over the right upper quadrant traveling horizontally to the left upper quadrant. The only thing that helps the pain is lying still. Movement, palpation, and deep inspiration make the pain worse. She has never had pain like this before with such severity. She tried gas x and omeprazole to help the bloating but found no relief. She is receiving prn Dilaudid and fentanyl which she states helps but does not completely take the pain away. She denies recent sick contact. She does say that she had some chicken salad a few days ago which she thought tasted funny. Initial lab work was unimpressive with a mild leukocytosis of
[2022-12-12 14:00] VITALS: BP 125/77; PULSE 60; RESP 16; TEMP 36.5; O2SAT 97
--- NOTE | 2022-12-12 16:21 | WPDGICN ---
Assessment and Plan Assessment and plan (1) Intractable abdominal pain: Code(s): R10.9 - Unspecified abdominal pain Status: Acute Assessment and Plan: this is improving, found to have enteritis, probably gastroenteritis no more diarrhea since admission will start liquid diet and monitor if more BM then will collect stool sample she says that never had scopes- consider as outpatient (2) Enteritis: Code(s): K52.9 - Noninfective gastroenteritis and colitis, unspecified Status: Acute Assessment and Plan: clinically better medical support (3) Abnormal liver function test: Code(s): R79.89 - Other specified abnormal findings of blood chemistry Status: Acute Assessment and Plan: probably related to enteritis bili normalized she is post cholecystectomy and hepatitis panel negative monitor GI Consult Note Consult date/time: 12/12/22 16:21 Reason for consult: abdominal pain, enteritis HPI: Rosa Anderson is a 62 year old female with history of HTN, heart block with pacemaker, atrial fibrillation on xarelto, anxiety, depression, and 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 She came to the ED with complaints of new onset of abdominal pain, nausea, and diarrhea with low grade fever of 100 for the last 3-4 days. Her appetite declined early this week and had bloating accompanied with severe abdominal pain which was diffuse throughout her abdomen, pain better if lying still. She tried gas x and omeprazole without any relief. She denies recent sick contact. Lab showed mild leukocytosis 13.2, normal liver function studies but next day bili 1.6, transaminases 140-260 since normalization bili and transaminases trending down. Right upper quadrant ultrasound showed hepatic steatosis and expected changes after previous cholecystectomy. CT scan showed enteritis, possible ileus. She has not had any more diarrhea since admission and has been npo. She denies nausea now (was having some headache), hepatitis panel negative. Stool sample was ordered. Review of Systems Constitutional: Constitutional: Denies chills Eyes: Eyes: Denies blurry vision ENT: Reports Normal hearing present Cardiovascular: Cardiovascular: Denies chest pain Respiratory: Respiratory: Denies cough Gastrointestinal: Gastrointestinal: Reports abdominal pain, Reports diarrhea and Reports nausea Genitourinary: Genitourinary: Denies urinary incontinence Musculoskeletal: Musculoskeletal: Denies arthralgias Integumentary/Breasts: Skin/Breast: Denies rash Neurologic: Denies Abnormal speech present Psychiatric: Psychiatric: Denies behavioral changes [facility] Past Medical History Medical History (Updated 12/11/22 @ 21:20 by Karuna Patel APRN) Afib Anxiety Chronic knee pain Complete heart block Depression Gallstone HLD (hyperlipidemia) Hypertension Lipoma of colon Obesity Vitamin D deficiency Surgical History Surgical History (Updated 12/12/22 @ 16:28 by Brigido Frazier MD) History of laparoscopic cholecystectomy 11/17/19 History of right hemicolectomy 11/17/19 History of tubal ligation 1994 Status post placement of cardiac pacemaker Family History Family History Mother Sudden cardiac , Onset Age: 49 Father Lung cancer Acute myocardial infarction Sibling Lung cancer Social History Social History Smoking status: Never smoker Second hand tobacco smoke exposure: No Alcohol intake: never Drinks per week: 1 Alcohol use details: socially; seldom Substance use: never Substance use type: does not use Lack of Transportation: No Lack of Food: Never True Current Housing: I Have Housing Concerned About Future Housing: No Difficulty Paying Gas/Electric Bills: No Difficulty Paying for Me
[2022-12-12 21:31] VITALS: BP 136/81; PULSE 66; RESP 13; TEMP 37; O2SAT 97
[2022-12-13] MEDS: DEXTROSE 5%/0.45% SOD CHL 1,000 ML 75 ML IV CONT (02:47)
[2022-12-13 05:36] VITALS: BP 136/85; PULSE 64; RESP 14; TEMP 36.3; O2SAT 98
[2022-12-13] MEDS: fentaNYL CITRATE INJ (*CRX) 100 MCG/2 ML VIAL 25 MCG IV PUSH (05:43)
[2022-12-13 06:50] LABS: Basophils Absolute Auto 0.1 K/mm3 (0.0-0.1); Basophils Percent Auto 0.6 % (0.2-1.2); Eosinophils Absolute Auto 0.2 K/mm3 (0-0.3); Eosinophils Percent Auto 1.7 % (0-4.4); Hematocrit 40.2 % (37.0-47.0); Hemoglobin 13.3 g/dL (12.0-15.0); Immature Granulocyte Absolute 0.13 K/mm3 (0.00-0.031); Immature Granulocyte Percent A 1.4 % (0-0.5); Lymphocytes Absolute Auto 2.43 K/mm3 (0.9-3.2); Lymphocytes Percent Auto 25.3 % (18.3-44.2); Mean Corpuscular HGB Conc 33.1 g/dl (32-36); Mean Corpuscular Hemoglobin 30.4 pg (26-34); Mean Corpuscular Volume 91.8 fl (80-100); Mean Platelet Volume 10.1 fl (7.4-10.4); Monocytes Absolute Auto 0.7 K/mm3 (0.1-0.6); Monocytes Percent Auto 7.5 % (2.6-8.5); Neutrophils Absolute Auto 6.1 K/mm3 (1.3-6.7); Neutrophils Percent Auto 63.5 % (45.5-73.1); Platelet Count Result 315 k/mm3 (150-375); Red Blood Count 4.38 M/mm3 (4.2-5.4); Red Cell Distribution Width 13.4 % (11.5-14.5); White Blood Count 9.6 K/mm3 (4.5-10.0)
[2022-12-13 06:59] LABS: Prothrombin Time 13.8 Seconds (11.1-14.7)
[2022-12-13 07:00] LABS: Partial Thromboplastin Time 28.5 SECONDS (22.3-36.8)
[2022-12-13 07:06] LABS: Alanine Aminotransferase 110 U/L (6-35); Albumin Level 3.8 g/dL (3.5-5.1); Alkaline Phosphatase 125 U/L (38-126); Anion Gap 2 mmol/L (8-16); Aspartate Amino Transferase 66 U/L (14-36); Bilirubin,Total 0.6 mg/dL (0.2-1.3); Blood Urea Nitrogen 5 mg/dL (7-17); Calcium 8.6 mg/dL (8.4-10.2); Carbon Dioxide 30 mmol/L (22-30); Chloride 101 mmol/L (98-107); Cholesterol 187 mg/dL (0-200); Estimated CRCL calculation 82 ml/min; Estimated Glomerular Filt Rate > 60; Glucose 116 mg/dL (65-110); HDL Direct 44 mg/dL; Potassium 3.2 mmol/L (3.4-5.0); Sodium 133 mmol/L (137-145); Triglycerides 113 mg/dL (<150)
[2022-12-13 07:13] LABS: LDL Cholesterol Direct 92 mg/dL
--- NOTE | 2022-12-13 08:57 | PM.IMPN ---
Progress Note: A&P Assessment and Plan (1) Intractable abdominal pain: Code(s): R10.9 - Unspecified abdominal pain Status: Acute Assessment and Plan: -required less pain medication over the last 12 hours. -transition to PO medications. -advanced diet to full liquids at breakfast -no diarrhea since admission. cancel stool cultures -liver enzymes resolving (2) Atrial flutter with rapid ventricular response: Code(s): I48.92 - Unspecified atrial flutter Status: Acute Assessment and Plan: restarting home medications (3) Hypertension: Qualifiers: Hypertension type: essential hypertension Qualified Code(s): I10 - Essential (primary) hypertension Code(s): I10 - Essential (primary) hypertension Status: Acute Assessment and Plan: blood pressures reviewed and are normal restarted home medications (4) Abnormal liver function test: Code(s): R79.89 - Other specified abnormal findings of blood chemistry Status: Acute Assessment and Plan: T bili 1.6, AST 279, ALT 140, Alkphos 155 initially were WNL on admission. Repeat labs 18 hours later showed acute elevation GI consult placed, appreciate recs -likely elevation from gastroenteritis. trending down. recommend scope as outpatient as she has not had one yet. RUQ US negative CT abdomen pelvis impression infectious/inflammatory small bowel enteritis. No abscess or free air.? Possible mild reactive ileus of the involved loops. Small amount of abdominopelvic ascites, some which demonstrates mild increased attenuation. Hemorrhagic ascites is a consideration. (5) Enteritis: Code(s): K52.9 - Noninfective gastroenteritis and colitis, unspecified Status: Acute Assessment and Plan: See # 1 Plan -advance diet to regular at lunch. 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 She presents to the ED with complaints of abdominal pain, nausea, and diarrhea with low grade fever of 100 for the last 3-4 days. She says that on Thursday she was having an upset stomach but she didn't think much of it. Her appetite declined over the next few days with persistent nausea and bloating accompanied with severe abdominal pain. The pain is diffuse throughout her abdomen with areas of increased tenderness over the right upper quadrant traveling horizontally to the left upper quadrant. The only thing that helps the pain is lying still. Movement, palpation, and deep inspiration make the pain worse. She has never had pain like this before with such severity. She tried gas x and omeprazole to help the bloating but found no relief. She is receiving prn Dilaudid and fentanyl which she states helps but does not completely take the pain away. She denies recent sick contact. She does say that she had some chicken salad a few days ago which she thought tasted funny. Initial lab work was unimpressive with a mild leukocytosis of 13.2 and normal liver function studies. Repeat labs today showed markedly elevated liver enzymes. A right upper quadrant ultrasound was ordered which showed hepatic steatosis and expected changes after previous cholecystectomy. She has been admitted with IV fluid hydration, NPO, pain control, and GI consultation for elevated liver enzymes. CT of abdomen and pelvis results as followed; Impression: Infectious/inflammatory small bowel enteritis. No abscess or free air.? Possible mild reactive ileus of the involved loops. Small amount of abdominopelvic ascites, some which demonstrates mild increased attenuation. Hemorrhagic ascites is a consideration. Interval History:
[2022-12-13 09:54] VITALS: PULSE 80
[2022-12-13] MEDS: FAMOTIDINE 20 MG/2 ML VIAL IV PUSH (09:54)
[2022-12-13] MEDS: METOPROLOL SUCCINATE EXT REL 25 MG TABCR PO (09:54)
[2022-12-13] MEDS: amLODIPine BESYLATE 5 MG TABLET PO (09:54)
[2022-12-13] MEDS: RIVAROXABAN 20 MG TABLET PO (09:55)
[2022-12-13 11:53] LABS: Toxigenic C. Diff NEGATIVE (NEGATIVE)
--- NOTE | 2022-12-13 12:07 | WPDGIPROGNO ---
Progress Note: A&P Assessment and Plan (1) Abdominal pain: Code(s): R10.9 - Unspecified abdominal pain Status: Acute Assessment and Plan: this is improving and tolerating diet advance as tolerated (2) Enteritis: Code(s): K52.9 - Noninfective gastroenteritis and colitis, unspecified Status: Acute Assessment and Plan: medical support (3) Abnormal liver function test: Code(s): R79.89 - Other specified abnormal findings of blood chemistry Status: Acute Assessment and Plan: trending down (4) History of laparoscopic cholecystectomy: Code(s): Z90.49 - Acquired absence of other specified parts of digestive tract Status: Acute Subjective Date/time seen: 12/13/22 12:07 Interval history: tolerating liquid diet, still pain but has improved yesterday had hard stool followed by loose one Review of Systems Review of Systems: All systems reviewed & are unremarkable except as noted in HPI and below Exam Const: General: comfortable and no acute distress HENMT: Face/Nose/Sinus: Normal nares present Eyes: General: appearance normal, both eyes and all related structures Neck: Neck: no JVD Resp: Auscultation: clear to auscultation bilaterally Cardio: Rate: regular rate Rhythm: regular rhythm GI: Inspection: non-distended GI Palp: Yes Soft to palpation, Yes Tenderness to palpation present (GI) (mild ttp mid abdomen, no rebound) and No Guarding due to palpation present (GI) Auscultation: normal bowel sounds Skin: General skin exam: normal color Neuro: Speech: normal speech Motor exam (neuro): 5/5 motor strength present throughout Extrem: General: normal to inspection Psych: Mental Status: mental status grossly normal Objective Data Vital Signs Vital Signs: Vital Signs - 24 hr 12/12/22 14:00 12/12/22 21:31 12/13/22 05:36 Temperature 97.7 F 98.6 F 97.4 F L Pulse Rate 60 66 64 Respiratory Rate 16 13 14 Blood Pressure 125/77 136/81 136/85 Pulse Oximetry 97 97 98 Oxygen Delivery 12/13/22 09:54 12/13/22 08:00 Temperature Pulse Rate 80 Respiratory Rate Blood Pressure Pulse Oximetry Oxygen Delivery Room Air Intake/Output Intake/Output: Intake & Output 12/10/22 12/11/22 12/12/22 12/13/22 23:59 23:59 23:59 23:59 Intake Total 1999 1000 1550 Balance 1999 1000 1550 Meds/Results Medications: Active Medications Generic Name Dose Route Start Last Admin Trade Name Cherie PRN Reason Stop Dose Admin Acetaminophen 650 mg 12/13/22 08:54 Acetaminophen 325 Mg Tablet PO Q4H PRN Pain Rated 4-6 Alprazolam 0.5 mg 12/13/22 08:53 Alprazolam (*Crx) 0.5 Mg Tablet PO DAILY PRN Anxiety Amlodipine Besylate 5 mg 12/13/22 10:00 12/13/22 09:54 Amlodipine Besylate 5 Mg Tablet PO 5 mg DAILY APOLONIA Administration Famotidine 20 mg 12/11/22 21:00 12/13/22 09:54 Famotidine 20 Mg/2 Ml Vial IV PUSH 20 mg Q12HR APOLONIA Administration Melatonin 10 mg 12/13/22 08:53 Melatonin 5 Mg Tablet PO HS PRN Insomnia Metoprolol Succinate 25 mg 12/13/22 10:00 12/13/22 09:54 Metoprolol Succinate Ext Rel 25 Mg Tabcr PO 25 mg BID APOLONIA Administration Multivitamins Therapeutic 1 tablet 12/13/22 18:00 Multivitamins Therapeutic Tab (*Bkc) PO EVENING APOLONIA Ondansetron HCl 4 mg 12/11/22 11:31 12/12/22 13:20 Ondansetron Inj 4 Mg/2 Ml Vial IV PUSH 4 mg Q6H PRN Administration Nausea And Vomiting Rivaroxaban 20 mg 12/13/22 18:00 Rivaroxaban 20 Mg Tablet PO EVENING [facility] Radiology Results: ITS Impressions Abdomen/Pelvis CT 12/11/22 05:54 Impression: Infectious/inflammatory small bowel enteritis. No abscess or free air. Possible mild reactive ileus of the involved loops. Small amount of abdominopelvic ascites, some which demonstrates mild increased attenuation. Hemorrhagic ascites is a consideration. Abdomen Ultrasound 12/11
--- NOTE | 2022-12-13 13:53 | PM.DS ---
DS: Admitting Diagnosis Discharge Date ThursdayDecember 13 Admitting Diagnosis Abdominal pain DS: Discharge Diagnosis Discharge Diagnosis (1) Intractable abdominal pain: Code(s): R10.9 - Unspecified abdominal pain Status: Acute Assessment and Plan: -required less pain medication over the last 12 hours. -transition to PO medications. -advanced diet to full liquids at breakfast -no diarrhea since admission. cancel stool cultures -liver enzymes resolving (2) Atrial flutter with rapid ventricular response: Code(s): I48.92 - Unspecified atrial flutter Status: Acute Assessment and Plan: restarting home medications (3) Hypertension: Qualifiers: Hypertension type: essential hypertension Qualified Code(s): I10 - Essential (primary) hypertension Code(s): I10 - Essential (primary) hypertension Status: Acute Assessment and Plan: blood pressures reviewed and are normal restarted home medications (4) Abnormal liver function test: Code(s): R79.89 - Other specified abnormal findings of blood chemistry Status: Acute Assessment and Plan: T bili 1.6, AST 279, ALT 140, Alkphos 155 initially were WNL on admission. Repeat labs 18 hours later showed acute elevation GI consult placed, appreciate recs -likely elevation from gastroenteritis. trending down. recommend scope as outpatient as she has not had one yet. RUQ US negative CT abdomen pelvis impression infectious/inflammatory small bowel enteritis. No abscess or free air.? Possible mild reactive ileus of the involved loops. Small amount of abdominopelvic ascites, some which demonstrates mild increased attenuation. Hemorrhagic ascites is a consideration. (5) Enteritis: Code(s): K52.9 - Noninfective gastroenteritis and colitis, unspecified Status: Acute Assessment and Plan: See # 1 Plan -advance diet to regular at lunch. 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 She presents to the ED with complaints of abdominal pain, nausea, and diarrhea with low grade fever of 100 for the last 3-4 days. She says that on Thursday she was having an upset stomach but she didn't think much of it. Her appetite declined over the next few days with persistent nausea and bloating accompanied with severe abdominal pain. The pain is diffuse throughout her abdomen with areas of increased tenderness over the right upper quadrant traveling horizontally to the left upper quadrant. The only thing that helps the pain is lying still. Movement, palpation, and deep inspiration make the pain worse. She has never had pain like this before with such severity. She tried gas x and omeprazole to help the bloating but found no relief. She is receiving prn Dilaudid and fentanyl which she states helps but does not completely take the pain away. She denies recent sick contact. She does say that she had some chicken salad a few days ago which she thought tasted funny. Initial lab work was unimpressive with a mild leukocytosis of 13.2 and normal liver function studies. Repeat labs today showed markedly elevated liver enzymes. A right upper quadrant ultrasound was ordered which showed hepatic steatosis and expected changes after previous cholecystectomy. She has been admitted with IV fluid hydration, NPO, pain control, and GI consultation for elevated liver enzymes. CT of abdomen and pelvis results as followed; Impression: Infectious/inflammatory small bowel enteritis. No abscess or free air.? Possible mild reactive ileus of the involved loops. Small amount of abdominopelvic ascites, some which demonstrates mild increased attenuation. Hemorrhag
[2022-12-13 14:00] VITALS: BP 130/92; PULSE 67; RESP 16; TEMP 36.4; O2SAT 97
[2022-12-15 18:56] LABS: Hepatitis C RNA, Quant PCR <15 IU/mL
[2022-12-17 12:42] LABS: Hepatitis B Core Ab Total Nonreactive (Nonreactive)
[2022-12-17 16:34] LABS: GGT 168 U/L (3-65)
== END 2022-12-13 18:55 | disposition home or self-care (01) ==
LOC: ANHED 12-11 03:10 → ANH3MEDSUR 12-11 06:35
PROVIDERS: Emergency Medicine; Nurse Practitioner Acute Care; Admitting Provider Internal Medicine; Emergency Provider Physician Assistant; PCP Family Medicine; Visit Provider Student in an Organized Health Care Education/Training Program
DX: K52.9 Noninfective gastroenteritis and colitis, unspecified (principal); R18.8 Other ascites; I48.92 Unspecified atrial flutter; F41.9 Anxiety disorder, unspecified; G89.29 Other chronic pain; M25.569 Pain in unspecified knee; I44.2 Atrioventricular block, complete; F32.A Depression, unspecified; D72.829 Elevated white blood cell count, unspecified; E78.5 Hyperlipidemia, unspecified; R79.89 Other specified abnormal findings of blood chemistry; K76.0 Fatty (change of) liver, not elsewhere classified; R74.01 Elevation of levels of liver transaminase levels; I10 Essential (primary) hypertension; E55.9 Vitamin D deficiency, unspecified; E66.9 Obesity, unspecified; Z68.34 Body mass index [BMI] 34.0-34.9, adult; Z90.49 Acquired absence of other specified parts of digestive tract; Z95.0 Presence of cardiac pacemaker; Z79.01 Long term (current) use of anticoagulants; Z79.899 Other long term (current) drug therapy; Z82.49 Family history of ischemic heart disease and other diseases of the circulatory system
CPT/HCPCS: 36415; 74018; 74177; 76705; 80053; 80061; 80307; 81003; 81025; 82248; 82977; 83605; 83690; 83735; 85025; 85610; 85730; 86704; 86705; 86706; 86709; 87045; 87269; 87272; 87340; 87427; 87449; 87493; 87522; 96361; 96372; 96374; 96375; 96376; 99285; A9270; G0378; J1650; J1885; J2270; J2405; J3010; J7030; Q9967

== ENCOUNTER 2023-01-05 11:47 | Outpatient (CLI) | payer OTHER, SELFPAY ==
--- NOTE | ~2023-01-05 | MMUS_ITS ---
EXAMINATION: MM diagnostic jennifer BI w everette, US breast BI complete HISTORY: Possible breast masses reported on 12/04/2022 screening mammogram examination TECHNIQUE: Additional 3-D tomosynthesis images of both breasts were performed and synthetic 2-D image s were generated. CAD analysis was submitted and interpreted. High resolution complete bilateral lidya st ultrasound examination including all 4 quadrants and subareolar areas was performed. COMPARISON: 12/04/2022, 03/27/2017 bilateral screening mammogram examinations FINDINGS: MAMMOGRAPHIC FINDINGS: No reproducible suspicious mammographic mass lesion or significant new or developing density since is noted. ULTRASOUND: No suspicious mass or shadowing, cyst or other significant abnormality of either breast is detected. IMPRESSION: 1. No mammographic evidence of malignancy 2. Routine annual mammographic screening is recommended BI-RADS Category 1: Negative Reviewed, dictated and finalized at location A. IMPRESSION: 1. No mammographic evidence of malignancy 2. Routine annual mammographic screening is recommended BI-RADS Category 1: Negative
== END 2023-01-05 11:48 | disposition home or self-care (01) ==
PROVIDERS: PCP Family Medicine; Visit Provider Family Medicine
DX: R92.8 Other abnormal and inconclusive findings on diagnostic imaging of breast (principal)
CPT/HCPCS: 76641; 77062; 77066; G0279